=== PATIENT | female | born 1955 | race Caucasian/White ===

== ENCOUNTER → 2016-08-15 | Outpatient (CLI) | payer BC ==
--- NOTE | 2016-08-18 11:47 | MM ---
Reason for exam: screening (asymptomatic). Last mammogram was performed 1 year and 11 months ago. History: Patient is postmenopausal. Took hormonal contraceptives for 2 years beginning at age 19. Took estrogen for 1 year 6 months beginning at age 45. Physical Findings: A clinical breast exam by your physician is recommended on an annual basis and results should be correlated with mammographic findings. MG Screening Mammo w CAD Bilateral CC and MLO view(s) were taken. XCCL view(s) were taken of the left breast. Prior study comparison: September 08, 2014, bilateral MG screening mammo w CAD. August 03, 2013, bilateral digital screening mammo w/CAD. There are scattered fibroglandular densities. No significant changes when compared with prior studies. ASSESSMENT: Benign, BI-RAD 2 RECOMMENDATION: Routine screening mammogram of both breasts in 1 year.
== END | disposition home or self-care (01) ==
LOC: RADMAMWWP 13:27
PROVIDERS: ATTEND Obstetrics & Gynecology
DX: Z12.31 Encounter for screening mammogram for malignant neoplasm of breast (principal)

== ENCOUNTER → 2017-09-07 | Outpatient (CLI) | payer BC ==
--- NOTE | 2017-09-07 08:21 | MM ---
Reason for exam: clinical finding. Last mammogram was performed 1 year and 1 month ago. History: Patient is postmenopausal. Took hormonal contraceptives for 2 years beginning at age 19. Took estrogen for 1 year 6 months beginning at age 45. Physical Findings: Nurse did not find any significant physical abnormalities on exam. MG Diagnostic Mammo w CAD GRIFFIN Bilateral CC and MLO view(s) were taken. Prior study comparison: August 15, 2016, bilateral MG screening mammo w CAD. September 08, 2014, bilateral MG screening mammo w CAD. There are scattered fibroglandular densities. There is chronic nodularity in the right breast. No significant new findings when compared with previous films. These results were verbally communicated with the patient and result sheet given to the patient on 09/07/17. ASSESSMENT: Incomplete: need additional imaging evaluation, BI-RAD 0 RECOMMENDATION: Ultrasound of the left breast. (targeted to pain)
--- NOTE | 2017-09-07 08:22 | USB ---
Reason for exam: additional evaluation requested from abnormal screening. History: Patient is postmenopausal. Took hormonal contraceptives for 2 years beginning at age 19. Took estrogen for 1 year 6 months beginning at age 45. US Breast Limited LT Left breast ultrasound demonstrates no cystic or solid lesion seen. Scanned from 12-6 o'clock. These results were verbally communicated with the patient and result sheet given to the patient on 09/07/17. ASSESSMENT: Negative, BI-RAD 1 RECOMMENDATION: Routine screening mammogram of both breasts in 1 year. Manage on a clinical basis with regard to lateral left breast pain.
== END | disposition home or self-care (01) ==
LOC: RADMAMWWP 06:56
PROVIDERS: ATTEND Obstetrics & Gynecology
DX: N64.4 Mastodynia (principal); R92.8 Other abnormal and inconclusive findings on diagnostic imaging of breast
CPT/HCPCS: 77066

== ENCOUNTER → 2018-07-05 | Outpatient (CLI) | payer BC ==
[2018-07-05 12:38] LABS: HCT 42.9 % (34.0-46.0); HGB 14.4 gm/dL (11.4-16.0); MCH 32.7 pg (25.0-35.0); MCHC 33.5 g/dL (31.0-37.0); MCV 97.6 fL (80.0-100.0); Mean Platelet Volume 6.6; Platelet Count 389 k/uL (150-450); RDW 12.7 % (11.5-15.5); WBC 6.1 k/uL (3.8-10.6)
[2018-07-05 12:50] LABS: Appearance,Urine Clear (Clear); Bilirubin,Urine Negative (Negative); Blood,Urine Trace (Negative); Color,Urine Light Yellow; Glucose,Urine (UA) Negative (Negative); Ketones,Urine Negative (Negative); Leukocyte Esterase,Urine Negative (Negative); Nitrite,Urine Negative (Negative); Protein,Urine Negative (Negative); RBC,Urine 1 /hpf (0-5); Specific Gravity,Urine 1.004 (1.001-1.035); Squamous Epithelial Cell,Urine <1 /hpf (0-4); Urobilinogen,Urine <2.0 mg/dL (<2.0); WBC,Urine <1 /hpf (0-5)
[2018-07-05 18:59] LABS: T4, Free (Free Thyroxine) 1.5 ng/dL (0.80-1.80)
[2018-07-05 19:19] LABS: Albumin/Globulin Ratio 2.5 (1.20-2.10); Anion Gap 8.9 mmol/L (4.00-12.00); Carbon Dioxide 29.1 mmol/L (21.6-31.8); LDL Cholesterol,Calculated 100.6 mg/dL (0.0-131.0); Potassium 4.1 mmol/L (3.5-5.5); Total Bilirubin 0.7 mg/dL (0.2-1.2); VLDL Calculation 32.4 mg/dL (5.00-40.00)
[2018-07-05 20:32] LABS: Hepatitis C IgG Antibody Non-Reactive (Non-Reactive)
== END | disposition home or self-care (01) ==
LOC: LABWHC1 10:59
PROVIDERS: ATTEND Family Medicine
DX: Z00.00 Encounter for general adult medical examination without abnormal findings (principal); Z13.9 Encounter for screening, unspecified; E55.9 Vitamin D deficiency, unspecified; E03.9 Hypothyroidism, unspecified
CPT/HCPCS: 36415; 80053; 80061; 81001; 82306; 84439; 84443; 84481; 85027; 86803

== ENCOUNTER → 2018-10-26 | Outpatient (CLI) | payer BC ==
--- NOTE | 2018-10-26 16:21 | MR ---
EXAMINATION TYPE: MR brain wo con DATE OF EXAM: 10/26/2018 COMPARISON: NONE HISTORY: Left leg weakness and TIA per order. Left leg numbness and dizziness with memory loss per pa tient. TECHNIQUE: Multiplanar, multisequence imaging of the brain and brainstem is performed without IV cont rast. FINDINGS: Diffusion weighted images demonstrate no evidence of a recent infarct or other diffusion abnormality. There is no worrisome extra-axial fluid collection. There is mild ventricular and sulcal prominence. There is occasional focus of T2 hyperintensity seen throughout the white matter bilaterally. Less adenike n 4 lesions are seen. For reference to frontal lobe lesions are noted axial image 20 measuring 2 to 3 mm in size. Midline structures demonstrate normal morphology. The craniocervical junction appears within normal limits. Normal vascular flow voids are present. Dominant right vertebral artery is present. The visua lized sinuses are clear and the globes are intact. Some increased patchy fluid left mastoid air cells inferiorly is seen. IMPRESSION: Mild generalized age-related cerebral atrophy and minimal chronic small vessel ischemic c hange. No evidence of a recent or significant old infarcts. Perhaps mild left-sided mastoiditis, mason elate clinically.
== END ==
LOC: RADMRIMAIN 15:00
PROVIDERS: ATTEND Psychiatry & Neurology Neurology
DX: G31.1 Senile degeneration of brain, not elsewhere classified (principal)
CPT/HCPCS: 70551

== ENCOUNTER → 2018-11-02 | Outpatient (CLI) | payer BC ==
--- NOTE | 2018-11-02 19:53 | ECHOF ---
Referral Reason:G45.9 TIA I74.9 embolism and thrombus MEASUREMENTS -------- HEIGHT: 172.7 cm WEIGHT: 83.9 kg BP: RVIDd: 2.7 cm (< 3.3) IVSd: 1.1 cm (0.6 - 1.1) LVIDd: 4.1 cm (3.9 - 5.3) LVPWd: 1.5 cm (0.6 - 1.1) IVSs: 1.3 cm LVIDs: 2.9 cm LVPWs: 1.5 cm LA Diam: 4.2 cm (2.7 - 3.8) LAESV Index (A-L): 30.61 ml/m Ao Diam: 3.2 cm (2.0 - 3.7) AV Cusp: 2.4 cm (1.5 - 2.6) LA Diam: 3.3 cm (2.7 - 3.8) EPSS: 0.5 cm MV E Brennon: 0.53 m/s MV DecT: 275 ms MV A Brennon: 0.85 m/s MV E/A Ratio: 0.63 RAP: 5.00 mmHg RVSP: 27.53 mmHg MV EF SLOPE: 69.90 mm/s (70 - 150) MV EXCURSION: 1.97 cm (> 18.000) FINDINGS -------- Sinus rhythm. This was a technically adequate study. The left ventricular size is normal. There is mild concentric left ventricular hypertrophy. Overa ll left ventricular systolic function is normal with, an EF between 55 - 60 %. The right ventricle is normal in size. The left atrium is mildly dilated. LA is midly dilated 29-33ml/m2. The right atrial size is normal. There is mild aortic regurgitation. Mild mitral annular calcification present. No mitral regurgitation. The right ventricular systolic pressure, as measured by Doppler, is 27.53mmHg. There is no pulmonic regurgitation present. The aortic root size is normal. There is no pericardial effusion. CONCLUSIONS -------- 1. This was a technically adequate study. 2. The left ventricular size is normal. 3. There is mild concentric left ventricular hypertrophy. 4. Overall left ventricular systolic function is normal with, an EF between 55 - 60 %. 5. The right ventricle is normal in size. 6. The left atrium is mildly dilated. 7. LA is midly dilated 29-33ml/m2. 8. The right atrial size is normal. 9. There is mild aortic regurgitation. 10. Mild mitral annular calcification present. 11. No mitral regurgitation. 12. The right ventricular systolic pressure, as measured by Doppler, is 27.53mmHg. 13. There is no pulmonic regurgitation present. 14. The aortic root size is normal. 15. There is no pericardial effusion. ELECTROCARDIOGRAPHIC TECHNICIAN: Kaity Lester RDCS
== END ==
LOC: RADECHMAIN 07:57
PROVIDERS: ATTEND Psychiatry & Neurology Neurology
DX: I72.8 Aneurysm of other specified arteries (principal); I35.1 Nonrheumatic aortic (valve) insufficiency; I70.8 Atherosclerosis of other arteries; I10 Essential (primary) hypertension
CPT/HCPCS: 93306

== ENCOUNTER → 2018-12-01 | Outpatient (CLI) | payer BC ==
--- NOTE | 2018-12-02 11:31 | MM ---
Reason for exam: screening (asymptomatic). Last mammogram was performed 1 year and 3 months ago. History: Patient is postmenopausal. Took hormonal contraceptives for 2 years beginning at age 19. Took estrogen for 1 year 6 months beginning at age 45. Physical Findings: A clinical breast exam by your physician is recommended on an annual basis and results should be correlated with mammographic findings. MG Screening Mammo w CAD Bilateral CC, MLO, and XCCL view(s) were taken. Prior study comparison: September 07, 2017, bilateral MG diagnostic mammo w CAD G[facility]FF[facility]. August 15, 2016, bilateral MG screening mammo w CAD. There are scattered fibroglandular densities. There is no discrete abnormality. ASSESSMENT: Negative, BI-RAD 1 RECOMMENDATION: Routine screening mammogram of both breasts in 1 year.
== END | disposition home or self-care (01) ==
LOC: RADMAMWWP 12:45
PROVIDERS: ATTEND Obstetrics & Gynecology
DX: Z12.31 Encounter for screening mammogram for malignant neoplasm of breast (principal)
CPT/HCPCS: 77067

== ENCOUNTER → 2019-04-04 | Outpatient (CLI) | payer BC ==
[2019-04-04 07:45] LABS: HCT 41.2 % (34.0-46.0); HGB 13.9 gm/dL (11.4-16.0); MCH 32.6 pg (25.0-35.0); MCHC 33.9 g/dL (31.0-37.0); MCV 96.3 fL (80.0-100.0); Platelet Count 443 k/uL (150-450); RBC 4.27 m/uL (3.80-5.40); RDW 13.2 % (11.5-15.5); WBC 6.1 k/uL (3.8-10.6)
[2019-04-04 07:56] LABS: Appearance,Urine Clear (Clear); Bilirubin,Urine Negative (Negative); Blood,Urine Negative (Negative); Color,Urine Yellow; Glucose,Urine (UA) Negative (Negative); Ketones,Urine Negative (Negative); Leukocyte Esterase,Urine Negative (Negative); Nitrite,Urine Negative (Negative); Protein,Urine Negative (Negative); Urobilinogen,Urine <2.0 mg/dL (<2.0)
[2019-04-04 11:14] LABS: African American GFR (CKD) 79.4 (60.0-200.0); Albumin 4.9 g/dL (3.80-4.90); Albumin/Globulin Ratio 2.45 (1.60-3.17); Anion Gap 8.3 mmol/L (4.00-12.00); BUN/Creat Ratio 11.11 Ratio (12.00-20.00); Carbon Dioxide 31.7 mmol/L (21.6-31.8); Chol/HDL Ratio 3.54; Total Bilirubin 0.5 mg/dL (0.2-1.2); Total Protein 6.9 g/dL (6.2-8.2)
[2019-04-04 11:23] LABS: T4, Free (Free Thyroxine) 1.5 ng/dL (0.80-1.80)
== END | disposition home or self-care (01) ==
LOC: LABWHC1 07:17
PROVIDERS: ATTEND Family Medicine
DX: Z00.00 Encounter for general adult medical examination without abnormal findings (principal); E55.9 Vitamin D deficiency, unspecified; E03.9 Hypothyroidism, unspecified
CPT/HCPCS: 36415; 80053; 80061; 81003; 82306; 84439; 84443; 84481; 85027

== ENCOUNTER → 2019-06-28 | Outpatient (CLI) | payer BC ==
[2019-06-28 21:04] LABS: T4, Free (Free Thyroxine) 1.6 ng/dL (0.80-1.80)
== END | disposition home or self-care (01) ==
LOC: LABWHC1 09:34
PROVIDERS: ATTEND Family Medicine
DX: E03.9 Hypothyroidism, unspecified (principal)
CPT/HCPCS: 36415; 84439; 84443; 84481

== ENCOUNTER → 2020-01-20 | Outpatient (CLI) | payer BC ==
--- NOTE | 2020-01-23 10:06 | MM ---
Reason for exam: screening (asymptomatic). Last mammogram was performed 1 year and 2 months ago. History: Patient is postmenopausal. Took hormonal contraceptives for 2 years beginning at age 19. Took estrogen for 1 year 6 months beginning at age 45. Physical Findings: A clinical breast exam by your physician is recommended on an annual basis and results should be correlated with mammographic findings. MG Screening Mammo w CAD Bilateral CC and MLO view(s) were taken. Prior study comparison: December 01, 2018, bilateral MG screening mammo w CAD. September 07, 2017, bilateral MG diagnostic mammo w CAD [facility]. There are scattered fibroglandular densities. No significant changes when compared with prior studies. ASSESSMENT: Benign, BI-RAD 2 RECOMMENDATION: Routine screening mammogram of both breasts in 1 year.
== END | disposition home or self-care (01) ==
LOC: RADMAMWWP 10:45
PROVIDERS: ATTEND Obstetrics & Gynecology
DX: Z12.31 Encounter for screening mammogram for malignant neoplasm of breast (principal)
CPT/HCPCS: 77067

== ENCOUNTER → 2021-01-31 | Outpatient (CLI) | payer BC ==
--- NOTE | 2021-02-04 14:40 | MM ---
Reason for exam: screening (asymptomatic). Last mammogram was performed 1 year ago. History: Patient is postmenopausal. Took hormonal contraceptives for 2 years beginning at age 19. Took estrogen for 1 year 6 months beginning at age 45. Physical Findings: A clinical breast exam by your physician is recommended on an annual basis and results should be correlated with mammographic findings. MG Screening Mammo w CAD Bilateral CC and MLO view(s) were taken. Prior study comparison: January 20, 2020, bilateral MG screening mammo w CAD. December 01, 2018, bilateral MG screening mammo w CAD. There are scattered fibroglandular densities. Mole marker left breast with marker. ASSESSMENT: Benign, BI-RAD 2 RECOMMENDATION: Routine screening mammogram of both breasts in 1 year.
== END | disposition home or self-care (01) ==
LOC: RADMAMWWP 14:36
PROVIDERS: ATTEND Obstetrics & Gynecology
DX: Z12.31 Encounter for screening mammogram for malignant neoplasm of breast (principal); Z78.0 Asymptomatic menopausal state; Z79.3 Long term (current) use of hormonal contraceptives
CPT/HCPCS: 77067

== ENCOUNTER 2021-02-20 06:52 | Emergency (ER) | payer BC ==
[2021-02-20 07:04] VITALS: TEMP 97.8
--- NOTE | 2021-02-20 07:32 | ED ---
General Adult HPI - General Chief complaint: Chest Pain Stated complaint: Chest pain Time Seen by Provider: 02/20/21 07:16 Source: patient, family Mode of arrival: ambulatory - History of Present Illness Initial comments: Dictation was produced using [employer] dictation software. please excuse any grammatical, word or spelling errors. Chief Complaint: 65-year-old male presents to emergency department for substernal pressure after ingesting her daily medications History of Present Illness: She is 65-year-old female she states she has history of coronary artery disease and heart attacks. Patient states that she was taking her pills at 5:30 this morning. Immediately after taking her blood pressure medication she noted pressure in her substernal area. She felt as though the pills were stuck in her chest. She waited for several minutes and her symptoms seemed to resolve. She then after 1 hour took another one of her daily pills. She experiences a result. Patient denies any associated diaphoresis, nausea. States that perhaps the pain radiated slightly to her right upper extremity. Denies any fever chills or night sweats. Patient denies any symptoms that are worsening with deep inspiration. Patient has never had symptoms like this in the past. She does not report having had any trouble with swallowing difficulties. The ROS documented in this emergency department record has been reviewed and confirmed by me. Those systems with pertinent positive or negative responses have been documented in the HPI. All other systems are other negative and/or noncontributory. PHYSICAL EXAM: General Impression: Alert and oriented x3, not in acute distress HEENT: Normocephalic atraumatic, extra-ocular movements intact, pupils equal and reactive to light bilaterally, mucous membranes moist. Cardiovascular: Heart regular rate and rhythm Chest: Able to complete full sentences, no retractions, no tachypnea Abdomen: abdomen soft, non-tender, non-distended, no organomegaly Musculoskeletal: Pulses present and equal in all extremities, no peripheral edema Motor: no focal deficits noted Neurological: CN II-XII grossly intact, no focal motor or sensory deficits noted Skin: Intact with no visualized rashes Psych: Normal affect and mood ED course: 65-year-old well-appearing female presents to the emergency department for chest pressure after swallowing her pills. Vital signs upon arrival are within acceptable limits. EKG shows no signs of ischemia or infarction. 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 CBC is unremarkable. Metabolic panel is negative. Troponin is negative. Chest x-ray is nonacute. Patient reevaluated bedside at the and found to be in stable medical condition. She denies any symptoms currently. Disposition options were discussed. She would prefer to be discharge. She understands risks of being discharged given that she has an incomplete workup because of only 1 troponin. Nonetheless, patient does not have any high-risk features. Furthermore, her symptoms are atypical. She understands to seek immediate medical attention if she has any recurrence of symptoms. She is given aspirin.She is given strict return precautions. EKG interpretation: Ventricular rate 69, normal sinus rhythm,. Interval 176, QRS 90, QTc 4:30. No MS prolongation, no QTC prolongation, no ST or T-wave changes noted. No old EKG for comparison. Overall, this EKG is unremarkable - Related Data Allergies Allergy/AdvReac Type Severity Reaction Status Date / Time azithromycin Allergy Rash/Hives Verified 02/20/21 06:56 [From Zithromax Z-Lorenzo] clindamycin Allergy Rash/Hives Verified 02/20/21 06:56 Penicillins Allergy Rash/Hives Verified 02/20/21 06:56 acetaminophen AdvReac Nausea Verified 02/20/21 06:56 [From Tylenol-Codeine] codeine AdvReac Nausea Verified 02/20/21 06:56 [From Tylenol-Codeine] Review of Systems ROS Statement: Those systems with pertinent positive or pertinent negative responses have been documented in the HPI. ROS Other: All systems not noted in ROS Statement are negative. Past Medical History Past Medical History: Atrial Fibrillation, Atrial Flutter, CVA/TIA, Hyperlipidemia, Hypertension, Myocardial Infarction ([place]), Osteoarthritis (OA), Thyroid Disorder History of Any Multi-Drug Resistant Organisms: None Reported Past Surgical History: Appendectomy, Tubal Ligation Additional Past Surgical History / Comment(s): Cataract, orthopedic procedures Past Psychological History: No Psychological Hx Reported Smoking Status: Former smoker Past Alcohol Use History: None Reported Past Drug Use History: None Reported Course Vital Signs 02/20/21 02/20/21 06:57 08:04 Temperature 97.8 F Pulse Rate 73 71 Respiratory 18 16 Rate Blood Pressure 159/85 148/90 O2 Sat by Pulse 96 97 Oximetry Medical Decision Making - Lab Data Result diagrams: 02/20/21 07:47 02/20/21 07:47 Lab Results 02/20/21 02/20/21 02/20/21 Range/Units 07:47 07:47 07:47 WBC 3.9 (3.8-10.6) k/uL RBC 4.01 (3.80-5.40) m/uL Hgb 13.2 (11.4-16.0) gm/dL Hct 39.8 (34.0-46.0) % MCV 99.2 (80.0-100.0) fL MCH 32.9 (25.0-35.0) pg MCHC 33.2 (31.0-37.0) g/dL RDW 12.9 (11.5-15.5) % Plt Count 400 (150-450) k/uL MPV 6.8 Neutrophils % 72 % Lymphocytes % 19 % Monocytes % 5 % Eosinophils % 3 % Basophils % 0 % Neutrophils # 2.8 (1.3-7.7) k/uL Lymphocytes # 0.7 L (1.0-4.8) k/uL Monocytes # 0.2 (0-1.0) k/uL Eosinophils # 0.1 (0-0.7) k/uL Basophils # 0.0 (0-0.2) k/uL Sodium 138 (137-145) mmol/L Potassium 3.8 (3.5-5.1) mmol/L Chloride 102 (98-107) mmol/L Carbon Dioxide 31 H (22-30) mmol/L Anion Gap 5 mmol/L BUN 5 L (7-17) mg/dL Creatinine 0.69 (0.52-1.04) mg/dL Est GFR (CKD-EPI)AfAm >90 (>60 ml/min/1.73 sqM) Est GFR (CKD-EPI)NonAf >90 (>60 ml/min/1.73 sqM) Glucose 104 H (74-99) mg/dL Calcium 9.7 (8.4-10.2) mg/dL Magnesium 2.1 (1.6-2.3) mg/dL Total Bilirubin 0.3 (0.2-1.3) mg/dL AST 25 (14-36) U/L ALT 18 (4-34) U/L Alkaline Phosphatase 67 (38-126) U/L Troponin I <0.012 (0.000-0.034) ng/mL Total Protein 6.4 (6.3-8.2) g/dL Albumin 4.1 (3.5-5.0) g/dL Lipase 203 (23-300) U/L Disposition Clinical Impression: Chest pain Disposition: HOME SELF-CARE Condition: Fair Instructions (If sedation given, give patient instructions): Chest Pain (ED) Is patient prescribed a controlled substance at d/c from ED?: No Referrals: Christiano Mike MD [Primary Care Provider] - 1-2 days
[2021-02-20 07:59] LABS: Basophils % (A) 0 %; Eosinophils # (A) 0.1 k/uL (0-0.7); Eosinophils % (A) 3 %; HCT 39.8 % (34.0-46.0); HGB 13.2 gm/dL (11.4-16.0); Lymphocytes # (A) 0.7 k/uL (1.0-4.8); Lymphocytes % (A) 19 %; MCH 32.9 pg (25.0-35.0); MCHC 33.2 g/dL (31.0-37.0); MCV 99.2 fL (80.0-100.0); Mean Platelet Volume 6.8; Monocytes # (A) 0.2 k/uL (0-1.0); Monocytes % (A) 5 %; Neutrophils # (A) 2.8 k/uL (1.3-7.7); Neutrophils % (A) 72 %; Platelet Count 400 k/uL (150-450); RBC 4.01 m/uL (3.80-5.40); RDW 12.9 % (11.5-15.5); WBC 3.9 k/uL (3.8-10.6)
[2021-02-20 08:20] LABS: ALT 18 U/L (4-34); AST 25 U/L (14-36); African American GFR (CKD) >90 (>60 ml/min/1.73 sqM); Albumin 4.1 g/dL (3.5-5.0); Alkaline Phosphatase 67 U/L (38-126); Anion Gap 5 mmol/L; Blood Urea Nitrogen 5 mg/dL (7-17); Calcium 9.7 mg/dL (8.4-10.2); Carbon Dioxide 31 mmol/L (22-30); Chloride 102 mmol/L (98-107); Glucose 104 mg/dL (74-99); Lipase 203 U/L (23-300); Magnesium 2.1 mg/dL (1.6-2.3); Non-African American GFR(CKD) >90 (>60 ml/min/1.73 sqM); Potassium 3.8 mmol/L (3.5-5.1); Sodium 138 mmol/L (137-145); Total Bilirubin 0.3 mg/dL (0.2-1.3); Total Protein 6.4 g/dL (6.3-8.2)
--- NOTE | 2021-02-20 08:20 | XR ---
EXAMINATION TYPE: XR chest 1V portable DATE OF EXAM: 02/20/2021 COMPARISON: None INDICATION: Substernal pressure, chest pain TECHNIQUE: Single frontal view of the chest is obtained. FINDINGS: The heart size is normal. The pulmonary vasculature is normal. The lungs are clear. IMPRESSION: 1. No acute pulmonary process.
[2021-02-20 08:37] VITALS: PULSE 71
[2021-02-20] MEDS ORDERED: ASPIRIN 81 MG PO STA (09:08)
[2021-02-20 09:40] VITALS: BP 136/84; RESP 18
== END 2021-02-20 09:38 | disposition home or self-care (01) ==
LOC: EC 06:52
DX: R07.89 Other chest pain (principal); I10 Essential (primary) hypertension; I25.2 Old myocardial infarction; Z86.73 Personal history of transient ischemic attack (TIA), and cerebral infarction without residual deficits; Z87.891 Personal history of nicotine dependence; Z88.0 Allergy status to penicillin; Z88.5 Allergy status to narcotic agent; Z88.6 Allergy status to analgesic agent; Z88.1 Allergy status to other antibiotic agents
CPT/HCPCS: 36415; 71045; 80053; 83690; 83735; 84484; 85025; 93005; 99285

== ENCOUNTER → 2021-04-08 | Outpatient (CLI) | payer BC ==
[2021-04-09 02:04] LABS: T4, Free (Free Thyroxine) 1.7 ng/dL (0.80-1.80)
== END | disposition home or self-care (01) ==
LOC: LABWHC1 14:10
PROVIDERS: ATTEND Family Medicine
DX: E03.9 Hypothyroidism, unspecified (principal)
CPT/HCPCS: 36415; 84439; 84443; 84481

== ENCOUNTER → 2021-04-12 | Outpatient (CLI) | payer BC ==
[2021-04-12 14:29] LABS: HCT 42.8 % (37.2-46.3); HGB 13.5 g/dL (12.0-15.0); MCHC 31.5 g/dL (32.0-37.0); MCV 101.4 fL (80.0-97.0); Mean Platelet Volume 9.8 fL (9.5-12.2); Platelet Count 348 X 10*3/uL (140-440); RBC 4.22 X 10*6/uL (4.10-5.20); WBC 4.17 X 10*3/uL (4.50-10.00)
[2021-04-13 03:43] LABS: African American GFR (CKD) 90.3 (60.0-200.0); Albumin 4.8 g/dL (3.80-4.90); Albumin/Globulin Ratio 2.09 (1.60-3.17); Anion Gap 10.7 mmol/L (4.00-12.00); Carbon Dioxide 28.3 mmol/L (21.6-31.8); Chol/HDL Ratio 3.53; Globulin 2.3 g/dL (1.6-3.3); Non-African American GFR(CKD) 77.9 (60.0-200.0); Total Bilirubin 0.8 mg/dL (0.2-1.2); Total Protein 7.1 g/dL (6.2-8.2)
== END | disposition home or self-care (01) ==
LOC: LABWHC1 09:01
PROVIDERS: ATTEND Family Medicine
DX: Z00.00 Encounter for general adult medical examination without abnormal findings (principal)
CPT/HCPCS: 36415; 80053; 80061; 85027

== ENCOUNTER → 2021-12-20 | Outpatient (CLI) | payer MEDICARE ==
--- NOTE | 2021-12-23 08:36 | BD ---
EXAMINATION TYPE: Axial Bone Density DATE OF EXAM: 12/20/2021 COMPARISON: NONE CLINICAL HISTORY: 66 years year old Female. ICD-10 CODE: M89.9 DISORDER OF BONE, UNSPECIFIED Height: 66.5 Weight: 178.8 FRAX RISK QUESTIONS: Alcohol (3 or more units per day): NO Family History (Parent hip fracture): NO Glucocorticoids (More than 3mos): NO History of Fracture in Adulthood: NO Secondary Osteoporosis: 1. Type 1 Diabetes: NO 2. Hyperthyroidism: NO 3. Menopause before 45: NO 4. Malnutrition: NO 5. Chronic liver disease: NO Rheumatoid Arthritis: NO Current Tobacco Use: NO RISK FACTORS HISTORY OF: Hip Fracture (Right/Left): NO Spine Fracture: NO History of Wrist Fracture: NO Surgery to Spine/Hip(right/left)/Wrist (right/left): NO Family History of Osteoporosis: NO Active: YES Diet low in dairy products/other sources of calcium: YES Postmenopausal woman: YES Take estrogen and/or progesterone medications: NO Lost more than 2 inches in height since high school: YES Frequent falls: NO Poor Health: NO Hyperparathyroidism: NO Adrenal Insufficiency: NO MEDICATIONS: Prednisone or other steroids: NO Thyroid Medications: SYNTHROID How Long: PAST 20 YEARS Osteoporosis Medications:NO Additional Medications: SYNTHYROID, ELIQUIS, FAMOTIDINE, LIPITOR, FISH OIL. VIT D, CURCUMIN, Additional History: EXAM MEASUREMENTS: Bone mineral densitometry was performed using the [employer] System. Bone mineral density as measured about the Lumbar spine is: ----- L1-L4(G/cm2): 1.428 T Score Values are as follows: ----- L1: -0.1 ----- L2: 3.0 ----- L3: 3.5 ----- L4: 2.4 ----- L1-L4: 2.1 BASELINE STUDY Bone mineral density about the R hip (g/cm2): 0.965 Bone mineral density about the L hip (g/cm2): 0.999 T Score values are as follows: -----R Neck: -0.5 -----L Neck: -0.3 -----R Total: -0.6 -----L Total: -0.4 BASELINE STUDY FRAX%s: The graph provided illustrates a 7.2% chance for a major osteoporotic fx and a 0.4% chance fo r the hips probability for fx in 10 years time. IMPRESSION: Normal (Values between +1 and -1 indicate normal bone mass). Consider repeating this study in 5 year s or sooner if there is some new clinical indication. NOTE: T-SCORE=SD OF THE YOUNG ADULT MEAN.
== END | disposition home or self-care (01) ==
LOC: RADBDWWP 14:13
PROVIDERS: ATTEND Family Medicine
DX: M85.89 Other specified disorders of bone density and structure, multiple sites (principal)
CPT/HCPCS: 77080

== ENCOUNTER → 2022-01-09 | Outpatient (CLI) | payer MEDICARE ==
[2022-01-09 10:37] LABS: HCT 40.6 % (37.2-46.3); HGB 12.6 g/dL (12.0-15.0); MCH 30.3 pg (27.0-32.0); MCV 97.6 fL (80.0-97.0); Mean Platelet Volume 9.6 fL (9.5-12.2); NRBC Per 100 WBC 0 /100 WBCS (0.0-0.0); Platelet Count 336 X 10*3/uL (140-440); RBC 4.16 X 10*6/uL (4.10-5.20); RDW 13.1 % (11.5-14.5); WBC 4.72 X 10*3/uL (4.50-10.00)
[2022-01-09 11:16] LABS: ALT 15 U/L (8-44); AST 19 U/L (13-35); African American GFR (CKD) 105.4 (60.0-200.0); Albumin 4.6 g/dL (3.8-4.9); Albumin/Globulin Ratio 1.92 (1.60-3.17); Alkaline Phosphatase 72 U/L (41-126); BUN/Creat Ratio 12.71 Ratio (12.00-20.00); Blood Urea Nitrogen 8.9 mg/dL (9.0-27.0); Calcium 9.7 mg/dL (8.7-10.3); Chloride 102 mmol/L (96-109); Chol/HDL Ratio 3.97 Ratio; Globulin 2.4 g/dL (1.6-3.3); Glucose 84 mg/dL (70-110); LDL Cholesterol,Calculated 100.1 mg/dL (0.0-131.0); Non-African American GFR(CKD) 90.9 (60.0-200.0); Potassium 3.8 mmol/L (3.5-5.5); Sodium 138 mmol/L (135-145)
== END | disposition home or self-care (01) ==
LOC: LABWHC1 07:05
PROVIDERS: ATTEND Family Medicine
DX: Z00.01 Encounter for general adult medical examination with abnormal findings (principal); E03.9 Hypothyroidism, unspecified; R53.83 Other fatigue
CPT/HCPCS: 36415; 80053; 80061; 82306; 84439; 84443; 84481; 85027

== ENCOUNTER → 2022-02-03 | Outpatient (CLI) | payer MEDICARE ==
--- NOTE | 2022-02-06 10:26 | MM ---
Reason for Exam: Screening (asymptomatic). Last screening mammogram was performed 12 month(s) ago. Patient History: Menarche at age 14. First Full-Term at age 27. Postmenopausal. Estrogen for 1 year, 6 months, from age 45 until age 47. Hormonal Contraceptives for 2 years from age 19 until age 23. Risk Values: [place] 5 year model risk: 1.8%. NCI Lifetime model risk: 6.9%. Prior Study Comparison: 12/01/2018 Bilateral Screening Mammogram, [facility]. 01/20/2020 Bilateral Screening Mammogram, [facility]. 01/31/2021 Bilateral Screening Mammogram, [facility]. Tissue Density: The breast tissue is almost entirely fat. Findings: Analyzed By CAD. There is no suspicious group of microcalcifications or new suspicious mass in either breast. Overall Assessment: Benign, BI-RAD 2 Management: Screening Mammogram of both breasts in 1 year. A clinical breast exam by your physician is recommended on an annual basis and results should be correlated with mammographic findings. Electronically signed and approved by: Blake Quijano DO
== END | disposition home or self-care (01) ==
LOC: RADMAMWWP 16:25
PROVIDERS: ATTEND Obstetrics & Gynecology
DX: Z12.31 Encounter for screening mammogram for malignant neoplasm of breast (principal); Z78.0 Asymptomatic menopausal state
CPT/HCPCS: 77067

== ENCOUNTER → 2022-12-19 | Outpatient (CLI) | payer MEDICARE ==
[2022-12-19 15:22] LABS: HGB 13.4 g/dL (12.0-15.0); MCH 31.8 pg (27.0-32.0); MCHC 31.9 g/dL (32.0-37.0); MCV 99.8 fL (80.0-97.0); Mean Platelet Volume 9.2 fL (9.5-12.2); NRBC Per 100 WBC 0 /100 WBCS (0.0-0.0); Platelet Count 333 X 10*3/uL (140-440); RBC 4.21 X 10*6/uL (4.10-5.20); RDW 13.2 % (11.5-14.5); WBC 4.85 X 10*3/uL (4.50-10.00)
[2022-12-19 16:22] LABS: ALT 26 U/L (8-44); AST 20 U/L (13-35); Albumin 4.8 g/dL (3.8-4.9); Albumin/Globulin Ratio 2.18 (1.60-3.17); Alkaline Phosphatase 72 U/L (41-126); BUN/Creat Ratio 10.25 Ratio (12.00-20.00); Blood Urea Nitrogen 8.2 mg/dL (9.0-27.0); Carbon Dioxide 29.3 mmol/L (20.0-27.5); Chloride 101 mmol/L (96-109); Chol/HDL Ratio 3.48 Ratio; Globulin 2.2 g/dL (1.6-3.3); Glucose 86 mg/dL (70-110); LDL Cholesterol,Calculated 94.8 mg/dL (0.0-131.0); Non-African American GFR(CKD) 76.8 (60.0-200.0); Potassium 4.1 mmol/L (3.5-5.5); Sodium 142 mmol/L (135-145)
== END | disposition home or self-care (01) ==
LOC: LABWHC1 08:06
PROVIDERS: ATTEND Family Medicine
DX: Z00.01 Encounter for general adult medical examination with abnormal findings (principal); E66.3 Overweight; E03.9 Hypothyroidism, unspecified
CPT/HCPCS: 36415; 80053; 80061; 84439; 84443; 84481; 85027

== ENCOUNTER 2023-01-24 11:44 | Observation (INO) | payer MEDICARE ==
--- NOTE | 2023-01-24 12:15 | ED ---
Arrhythmia/Palpitations HPI - General Chief Complaint: Arrhythmia/Palpitations Stated Complaint: poss Afib Time Seen by Provider: 01/24/23 11:50 Source: patient Mode of arrival: ambulatory Limitations: no limitations - History of Present Illness Initial Comments: 67 year old female past history of A. fib presents to the emergency department reporting palpitations. States that her symptoms started around 10:00 this morning. She felt like her heart was racing. She took her Eliquis and Coreg this morning. Denies any missed doses. Admits to some chest tightness. Mild shortness of breath. No fevers, chills or cough. States that she will have pa roxysmal A. fib however this is the longest it has lasted. Denies any recent illnesses or medication changes. No other alleviating, precipitating or modifying factors - Related Data Home Medications Medication Instructions Recorded Confirmed Acetaminophen [Tylenol Arthritis] 650 mg PO DAILY PRN 01/24/23 01/24/23 Aloe Vera/Meka Root 1 tab PO DAILY 01/24/23 01/24/23 Apixaban [Eliquis] 5 mg PO BID 01/24/23 01/24/23 Atorvastatin [Lipitor] 20 mg PO HS 01/24/23 01/24/23 Cholecalciferol [Vitamin D3 (125 125 mcg PO DAILY 01/24/23 01/24/23 Mcg = 5000 Iu)] Curcumin-Phosphatidylcholine 500 mg PO BID 01/24/23 01/24/23 [Curcumin Phytosome] Famotidine [Pepcid] 20 mg PO BID 01/24/23 01/24/23 Levothyroxine Sodium [Synthroid] 137 mcg PO MOTUWETHFRSA@0130 01/24/23 01/24/23 Levothyroxine Sodium [Synthroid] 205.5 mcg PO PARNELL@0130 01/24/23 01/24/23 Magnesium 200 mg PO DAILY 01/24/23 01/24/23 Meclizine [Antivert] 25 mg PO TID PRN 01/24/23 01/24/23 [place]-3/Dha/Epa/Fish Oil [Fish Oil 1 cap PO BID 01/24/23 01/24/23 1,000 mg Softgel] Prevagen 1 cap PO DAILY 01/24/23 01/24/23 Vit C/E/Zn/Coppr/Lutein/Zeaxan 1 cap PO BID 01/24/23 01/24/23 [Preservision Areds 2 Softgel] carvediloL [Coreg] 18.75 mg PO BID 01/24/23 01/24/23 hydroCHLOROthiazide [Hydrodiuril] 25 mg PO DAILY 01/24/23 01/24/23 Previous Rx's Medication Instructions Recorded Diltiazem Cd [Cardizem CD] 120 mg PO DAILY #30 cap 01/25/23 Allergies Allergy/AdvReac Type Severity Reaction Status Date / Time azithromycin Allergy Rash/Hives Verified 01/24/23 11:49 [From Zithromax Z-Lorenzo] clindamycin Allergy Rash/Hives Verified 01/24/23 11:49 omeprazole Allergy Headache/GI Verified 01/24/23 13:46 Upset Penicillins Allergy Rash/Hives Verified 01/24/23 13:46 codeine AdvReac Nausea Verified 01/24/23 11:49 [From Tylenol-Codeine] Review of Systems ROS Statement: Those systems with pertinent positive or pertinent negative responses have been documented in the HPI. ROS Other: All systems not noted in ROS Statement are negative. Past Medical History Past Medical History: Atrial Fibrillation, Atrial Flutter, CVA/TIA, Hyperlipidemia, Hypertension, Myocardial Infarction (DC), Osteoarthritis (OA), Thyroid Disorder History of Any Multi-Drug Resistant Organisms: None Reported Past Surgical History: Appendectomy, Tubal Ligation Additional Past Surgical History / Comment(s): Cataract, orthopedic procedures Past Psychological History: No Psychological Hx Reported Smoking Status: Former smoker Past Alcohol Use History: None Reported Past Drug Use History: None Reported General Exam Limitations: no limitations General appearance: alert, in no apparent distress Head exam: Present: atraumatic, normocephalic, normal inspection Eye exam: Present: normal appearance, PERRL, EOMI. Absent: scleral icterus, conjunctival injection, periorbital swelling ENT exam: Present: normal exam, mucous membranes moist Neck exam: Present: normal inspection. Absent: tenderness, meningismus, lymphadenopathy Respiratory exam: Present: normal lung sounds bilaterally. Absent: respiratory distress, wheezes, rales, rhonchi, stridor Cardiovascular Exam: Present: tachycardia, irregular rhythm, normal heart sounds. Absent: systolic murmur, diastolic murmur, rubs, gallop, clicks GI/Abdominal exam: Present: soft, normal bowel sounds. Absent: distended, tenderness, guarding, rebound, rigid Extremities exam: Present: normal inspection, full ROM, normal capillary refill. Absent: tenderness, pedal edema, joint swelling, calf tenderness Back exam: Present: normal inspection Neurological exam: Present: alert, oriented X3, CN II-XII intact Psychiatric exam: Present: normal affect, normal mood Skin exam: Present: warm, dry, intact, normal color. Absent: rash Course Vital Signs 01/24/23 01/24/23 01/24/23 11:46 12:10 12:20 Temperature 98.2 F Pulse Rate 125 H 151 H Respiratory 18 23 29 H Rate Blood Pressure 169/73 123/83 123/83 O2 Sat by Pulse 98 Oximetry 01/24/23 01/24/23 01/24/23 12:40 13:00 13:37 Temperature Pulse Rate 138 H 116 H Respiratory 9 L 20 Rate Blood Pressure 127/68 127/68 95/74 O2 Sat by Pulse 96 97 Oximetry 01/24/23 01/24/23 01/24/23 14:00 15:00 16:00 Temperature Pulse Rate 128 H 80 76 Respiratory 17 20 14 Rate Blood Pressure 95/60 115/69 123/69 O2 Sat by Pulse 97 97 98 Oximetry 01/24/23 16:39 Temperature 98.4 F Pulse Rate 82 Respiratory Rate Blood Pressure 139/99 O2 Sat by Pulse Oximetry Medical Decision Making - Medical Decision Making Was pt. sent in by a medical professional or institution (, PA, NEONATAL PEDIATRIC NURSE, urgent care, hospital, or group home...) When possible be specific @ -No Did you speak to anyone other than the patient for history (EMS, parent, family, police, friend...)? What history was obtained from this source @ -No Did you review nursing and triage notes (agree or disagree)? Why? @ -I reviewed and agree with nursing and triage notes Were old charts reviewed (outside hosp., previous admission, EMS record, old EKG, old radiological studies, urgent care reports/EKG's, group home records)? Report findings @ -No old charts were reviewed Differential Diagnosis (chest pain, altered mental status, abdominal pain women, abdominal pain men, vaginal bleeding, weakness, fever, dyspnea, syncope, hea dache, dizziness, GI bleed, back pain, seizure, CVA, palpatations, mental health, musculoskeletal)? @ -Differential Palpitations Ventricular arrhythmias, atrial arrhythmias, myocardial infarction, anemia, thyrotoxicosis, electrolyte imbalance, hypokalemia, pulmonary embolism, pu lmonary disease, drugs, alcohol, anxiety, stress.... This is not meant to be an all-inclusive list. EKG interpreted by me (3pts min.). @ -EKG demonstrates A. fib with rate of 107. IN interval 134. QRS 93. QTC 394. No acute ST segment elevations or depressions Repeat EKG at 1508 demonstrates sinus rhythm with a rate of 80. IN interval 171. QRS 97. QTC of 402. No acute ST segment elevation or depression X-rays interpreted by me (1pt min.). @ -yes, no acute process CT interpreted by me (1pt min.). @ -None done U/S interpreted by me (1pt. min.). @ -None done What testing was considered but not performed or refused? (CT, X-rays, U/S, labs)? Why? @ -None What meds were considered but not given or refused? Why? @ -None Did you discuss the management of the patient with other professionals (professionals i.e. , PA, NEONATAL PEDIATRIC NURSE, lab, RT, psych nurse, medical social consultant, caddie supervisor, teacher, control officer, caser)? Give summary @ -dr denton, admitting physician Was smoking cessation discussed for >3mins.? @ -No Was critical care preformed (if so, how long)? @ -yes, 35 minutes for cardiezem gtt Were there social determinants of health that impacted care today? How? (Homelessness, low income, unemployed, alcoholism, drug addiction, transportation, low edu. Level, literacy, decrease access to med. care, fci, rehab)? @ -No Was there de-escalation of care discussed even if they declined (Discuss DNR or withdrawal of care, Hospice)? DNR status @ -No What co-morbidities impacted this encounter? (DM, HTN, Smoking, COPD, CAD, Cancer, CVA, ARF, Chemo, Hep., AIDS, mental health diagnosis, sleep apnea, morbid obesity)? @ -afib Was patient admitted / discharged? Hospital course, mention meds given and route, prescriptions, significant lab abnormalities, going to OR and other pertinent info. @ -Upon arrival patient is placed into room 2. Thorough history and physical exam was performed. Patient placed on continuous pulse ox and cardiac monitoring. 12-lead EKG was obtained which demonstrates A. fib with a rate in the 170s. IV is established. Patient started on Cardizem drip. Laboratory studies are reviewed and are within normal limits. Chest x-ray demonstrates no acute process. Recommended admission due to A. fib with RVR. Spoke with Dr. Denton who is agreeable to admit the patient. I do go in the room later on in the patient has converted to normal sinus rhythm. We'll continue Cardizem drip and admission patient with cardiology to consult Undiagnosed new problem with uncertain prognosis? @ -No Drug Therapy requiring intensive monitoring for toxicity (Heparin, Nitro, Insulin, Cardizem)? @ -cardiezem gtt Were any procedures done? @ -No Diagnosis/symptom? @ -afib with rvr Acute, or Chronic, or Acute on Chronic? @ -acute Uncomplicated (without systemic symptoms) or Complicated (systemic symptoms)? @ -complicated Side effects of treatment? @ -No Exacerbation, Progression, or Severe Exacerbation? @ -No Poses a threat to life or bodily function? How? (Chest pain, USA, DC, pneumonia, PE, COPD, DKA, ARF, appy, cholecystitis, CVA, Diverticulitis, Homicidal, Suicidal, threat to staff... and all critical care pts) @ -No - Lab Data Result diagrams: 01/25/23 05:04 01/25/23 05:04 Lab Results 01/24/23 01/24/23 01/24/23 Range/Units 12:24 12:24 12:24 WBC 13.5 H (3.8-10.6) k/uL RBC 4.38 (3.80-5.40) m/uL Hgb 14.0 (11.4-16.0) gm/dL Hct 42.4 (34.0-46.0) % MCV 97.0 (80.0-100.0) fL MCH 32.0 (25.0-35.0) pg MCHC 33.0 (31.0-37.0) g/dL RDW 12.9 (11.5-15.5) % Plt Count 337 (150-450) k/uL MPV 7.2 Neutrophils % 84 % Lymphocytes % 9 % Monocytes % 5 % Eosinophils % 1 % Basophils % 0 % Neutrophils # 11.3 H (1.3-7.7) k/uL Lymphocytes # 1.3 (1.0-4.8) k/uL Monocytes # 0.6 (0-1.0) k/uL Eosinophils # 0.1 (0-0.7) k/uL Basophils # 0.0 (0-0.2) k/uL PT 10.1 (9.0-12.0) sec INR 0.9 (<1.2) APTT 28.1 (22.0-30.0) sec Sodium 135 L (137-145) mmol/L Potassium 3.7 (3.5-5.1) mmol/L Chloride 98 (98-107) mmol/L Carbon Dioxide 27 (22-30) mmol/L Anion Gap 10 mmol/L BUN 9 (7-17) mg/dL Creatinine 0.67 (0.52-1.04) mg/dL Est GFR (CKD-EPI)AfAm >90 (>60 ml/min/1.73 sqM) Est GFR (CKD-EPI)NonAf >90 (>60 ml/min/1.73 sqM) Glucose 98 (74-99) mg/dL Calcium 9.8 (8.4-10.2) mg/dL Magnesium 1.8 (1.6-2.3) mg/dL Total Bilirubin 0.9 (0.2-1.3) mg/dL AST 31 (14-36) U/L ALT 26 (4-34) U/L Alkaline Phosphatase 83 (38-126) U/L Troponin I (0.000-0.034) ng/mL Total Protein 7.7 (6.3-8.2) g/dL Albumin 4.6 (3.5-5.0) g/dL TSH 0.054 L (0.465-4.680) mIU/L Free T4 1.80 (0.78-2.19) ng/dL 01/24/23 Range/Units 12:24 WBC (3.8-10.6) k/uL RBC (3.80-5.40) m/uL Hgb (11.4-16.0) gm/dL Hct (34.0-46.0) % MCV (80.0-100.0) fL MCH (25.0-35.0) pg MCHC (31.0-37.0) g/dL RDW (11.5-15.5) % Plt Count (150-450) k/uL MPV Neutrophils % % Lymphocytes % % Monocytes % % Eosinophils % % Basophils % % Neutrophils # (1.3-7.7) k/uL Lymphocytes # (1.0-4.8) k/uL Monocytes # (0-1.0) k/uL Eosinophils # (0-0.7) k/uL Basophils # (0-0.2) k/uL PT (9.0-12.0) sec INR (<1.2) APTT (22.0-30.0) sec Sodium (137-145) mmol/L Potassium (3.5-5.1) mmol/L Chloride (98-107) mmol/L Carbon Dioxide (22-30) mmol/L Anion Gap mmol/L BUN (7-17) mg/dL Creatinine (0.52-1.04) mg/dL Est GFR (CKD-EPI)AfAm (>60 ml/min/1.73 sqM) Est GFR (CKD-EPI)NonAf (>60 ml/min/1.73 sqM) Glucose (74-99) mg/dL Calcium (8.4-10.2) mg/dL Magnesium (1.6-2.3) mg/dL Total Bilirubin (0.2-1.3) mg/dL AST (14-36) U/L ALT (4-34) U/L Alkaline Phosphatase (38-126) U/L Troponin I <0.012 (0.000-0.034) ng/mL Total Protein (6.3-8.2) g/dL Albumin (3.5-5.0) g/dL TSH (0.465-4.680) mIU/L Free T4 (0.78-2.19) ng/dL Disposition Clinical Impression: Palpitations, Atrial fibrillation with RVR Disposition: ADMITTED IP TO THIS [facility] Condition: Stable Is patient prescribed a controlled substance at d/c from ED?: No Time of Disposition: 14:35 Decision to Admit Reason: Admit from EC Decision Date: 01/24/23 Decision Time: 14:35
[2023-01-24 12:38] LABS: Basophils % (A) 0 %; Eosinophils # (A) 0.1 k/uL (0-0.7); Eosinophils % (A) 1 %; HCT 42.4 % (34.0-46.0); Lymphocytes # (A) 1.3 k/uL (1.0-4.8); Lymphocytes % (A) 9 %; Mean Platelet Volume 7.2; Monocytes # (A) 0.6 k/uL (0-1.0); Monocytes % (A) 5 %; Neutrophils # (A) 11.3 k/uL (1.3-7.7); Neutrophils % (A) 84 %; Platelet Count 337 k/uL (150-450); RBC 4.38 m/uL (3.80-5.40); RDW 12.9 % (11.5-15.5); WBC 13.5 k/uL (3.8-10.6)
[2023-01-24] MEDS ORDERED: DILTIAZEM DRIP BOLUS FROM BAG 1 MG SOLN IV ONE (12:40)
[2023-01-24 12:57] LABS: ALT 26 U/L (4-34); AST 31 U/L (14-36); African American GFR (CKD) >90 (>60 ml/min/1.73 sqM); Albumin 4.6 g/dL (3.5-5.0); Alkaline Phosphatase 83 U/L (38-126); Anion Gap 10 mmol/L; Blood Urea Nitrogen 9 mg/dL (7-17); Calcium 9.8 mg/dL (8.4-10.2); Carbon Dioxide 27 mmol/L (22-30); Chloride 98 mmol/L (98-107); Glucose 98 mg/dL (74-99); Magnesium 1.8 mg/dL (1.6-2.3); Non-African American GFR(CKD) >90 (>60 ml/min/1.73 sqM); Potassium 3.7 mmol/L (3.5-5.1); Sodium 135 mmol/L (137-145); Total Bilirubin 0.9 mg/dL (0.2-1.3); Total Protein 7.7 g/dL (6.3-8.2)
[2023-01-24] MEDS ORDERED: DILTIAZEM 125 MG in SODIUM CHLORIDE 0.9% 100 ML IV SCH (13:00)
[2023-01-24 13:15] LABS: INR 0.9 (<1.2); Partial Thromboplastin Time 28.1 sec (22.0-30.0); Prothrombin Time 10.1 sec (9.0-12.0)
--- NOTE | 2023-01-24 13:30 | XR ---
EXAMINATION TYPE: XR chest 2V DATE OF EXAM: 01/24/2023 COMPARISON: 02/20/2021 INDICATION: Dysrhythmia A. fib TECHNIQUE: Frontal and lateral views of the chest are obtained. FINDINGS: The heart size is normal. The pulmonary vasculature is normal. The lungs are clear. IMPRESSION: 1. No acute pulmonary process.
[2023-01-24] MEDS ORDERED: SODIUM CHLORIDE 0.9% 1,000 ML IV ONE (14:12)
[2023-01-24] MEDS ORDERED: NALOXONE 0.4 MG/ML 1 ML VIAL IV PRN (14:35)
[2023-01-24] MEDS ORDERED: ONDANSETRON 4 MG/2 ML VIAL IVP PRN (16:37)
[2023-01-24] MEDS ORDERED: MELATONIN 3 MG TABLET PO PRN (16:37)
--- NOTE | 2023-01-24 16:39 | P.HPIM ---
History of Present Illness H&P Date: 01/24/23 Patient is a 67-year-old female with known A. fib, hypothyroidism, and high blood pressure who presented to the emergency department with complaints of palpitations. On arrival to the ER her pulse was 125. Lab work remarkable for white blood cell count of 13.5, TSH of 0.054, and sodium of 135. Chest x-ray demonstrated shows no acute cardiopulmonary process In the ER she was given a dose of 10 mg of Cardizem IV push 1 and then a Cardizem drip was ordered. Arrangements are made for admission. Patient seen and examined at bedside. She reports that she woke up in the middl e the night with an unusual headache. She took some Tylenol with back to sleep. She again had a headache upon aching this morning. She then just felt slightly off. She then developed palpitations when she went to lay down associated with some mild nausea, lightheadedness, and diaphoresis. He denies any overt chest pain. She denies any recent changes in her medications, missing a dose of medi cations. No recent alcohol intake. 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 No recent cough, cold, fever, flu, nausea, vomiting, diarrhea, or dysuria Vital signs reviewed General: nontoxic, no distress, appears at stated age Derm: warm, dry Eyes: EOMI, no lid lag, anicteric sclera, Cardiovascular: S1S2 reg, no murmur, positive posterior tibial pulse bilateral, no edema, Lungs: clear to auscultation bilateral, no rhonchi, no rales, no wheeze, no accessory muscle use Abdominal: soft, nontender to palpation, no guarding, no appreciable organomegaly, normal bowel sounds Ext: no gross muscle atrophy, moving all 4 studies independently, no contractures Neuro: CN II-XII grossly intact, no focal neuro deficits Psych: Alert, oriented, appropriate affect Assessment/plan: Atrial fibrillation with rapid ventricular response, now in normal sinus rhythm -Case discussed with ER and decision is made to place patient in observation -Stop Cardizem drip as patient has converted to normal sinus rhythm, start Cardizem 30 mg by mouth 3 times a day -Telemetry -Follow serial troponins -Echocardiogram -Consult cardiology -Continue with Eliquis Hypertension, controlled -Resume home hydrochlorothiazide 25 mg daily, Coreg 18.75 mg twice daily Dyslipidemia -Lipitor 20 mg at night, fish oil 1 cap twice daily Imaging: As per HPI Data Review: Vital signs reviewed and pulse 116, respiratory rate 20, blood pressure 95/74, O2 sat 97% on room air Labs reviewed and white blood cell count 13.5 The patient is placed in observation with an anticipated left than 2 midnight stay for evaluation of atrial fibrillation with rapid ventricular response DVT prophylaxis: Eliquis Anticipated discharge date: 24-[address]: home This dictation was prepared using Localist voice recognition software. Though every attempt is made to correct errors during dictation some may still exist. Past Medical History Past Medical History: Atrial Fibrillation, Atrial Flutter, CVA/TIA, Hyperlipidemia, Hypertension, Myocardial Infarction ([place]), Osteoarthritis (OA), Thyroid Disorder History of Any Multi-Drug Resistant Organisms: None Reported Past Surgical History: Appendectomy, Tubal Ligation Additional Past Surgical History / Comment(s): Cataract, orthopedic procedures, loop recorder Past Psychological History: No Psychological Hx Reported Smoking Status: Former smoker Past Alcohol Use History: None Reported Past Drug Use History: None Reported Medications and Allergies Home Medications Medication Instructions Recorded Confirmed Type Acetaminophen [Tylenol Arthritis] 650 mg PO DAILY PRN 01/24/23 01/24/23 History Aloe Vera/Meka Root 1 tab PO DAILY 01/24/23 01/24/23 History Apixaban [Eliquis] 5 mg PO BID 01/24/23 01/24/23 History Atorvastatin [Lipitor] 20 mg PO HS 01/24/23 01/24/23 History Cholecalciferol [Vitamin D3 (125 125 mcg PO DAILY 01/24/23 01/24/23 History Mcg = 5000 Iu)] Curcumin-Phosphatidylcholine 500 mg PO BID 01/24/23 01/24/23 History [Curcumin Phytosome] Famotidine [Pepcid] 20 mg PO BID 01/24/23 01/24/23 History Levothyroxine Sodium [Synthroid] 137 mcg PO MOTUWETHFRSA@0 01/24/23 01/24/23 History Levothyroxine Sodium [Synthroid] 205.5 mcg PO PARNELL@0 01/24/23 01/24/23 History Magnesium 200 mg PO DAILY 01/24/23 01/24/23 History Meclizine [Antivert] 25 mg PO TID PRN 01/24/23 01/24/23 History [place]-3/Dha/Epa/Fish Oil [Fish Oil 1 cap PO BID 01/24/23 01/24/23 History 1,000 mg Softgel] Prevagen 1 cap PO DAILY 01/24/23 01/24/23 History Vit C/E/Zn/Coppr/Lutein/Zeaxan 1 cap PO BID 01/24/23 01/24/23 History [Preservision Areds 2 Softgel] carvediloL [Coreg] 18.75 mg PO BID 01/24/23 01/24/23 History hydroCHLOROthiazide [Hydrodiuril] 25 mg PO DAILY 01/24/23 01/24/23 History Allergies Allergy/AdvReac Type Severity Reaction Status Date / Time azithromycin Allergy Rash/Hives Verified 01/24/23 11:49 [From Zithromax Z-Lorenzo] clindamycin Allergy Rash/Hives Verified 01/24/23 11:49 omeprazole Allergy Headache/GI Verified 01/24/23 13:46 Upset Penicillins Allergy Rash/Hives Verified 01/24/23 13:46 codeine AdvReac Nausea Verified 01/24/23 11:49 [From Tylenol-Codeine] Physical Exam Osteopathic Statement: *. No significant issues noted on an osteopathic structural exam other than those noted in the History and Physical/Consult. Vitals: Vital Signs Temp Pulse Resp BP Pulse Ox 01/24/23 16:00 76 14 123/69 98 01/24/23 15:00 80 20 115/69 97 01/24/23 14:00 128 H 17 95/60 97 01/24/23 13:37 116 H 20 95/74 97 01/24/23 13:00 138 H 9 L 127/68 96 01/24/23 12:40 127/68 01/24/23 12:20 29 H 123/83 01/24/23 12:10 151 H 23 123/83 01/24/23 11:46 98.2 F 125 H 18 169/73 98 Intake and Output 01/24/23 01/24/23 01/24/23 06:59 14:59 22:59 Other: Weight 80.739 kg Results CBC & Chem 7: 01/24/23 12:24 01/24/23 12:24 Labs: Abnormal Lab Results - Last 24 Hours (Table) 01/24/23 01/24/23 Range/Units 12:24 12:24 WBC 13.5 H (3.8-10.6) k/uL Neutrophils # 11.3 H (1.3-7.7) k/uL Sodium 135 L (137-145) mmol/L TSH 0.054 L (0.465-4.680) mIU/L
[2023-01-24] MEDS: DILTIAZEM ORAL 30 MG TAB PO SCH ×2 (16:42→21:44)
[2023-01-24] MEDS: carvediloL 12.5 MG TAB PO SCH (17:46)
[2023-01-24] MEDS ORDERED: ATORVASTATIN 20 MG TAB PO SCH (21:00)
[2023-01-24] MEDS: APIXABAN 5 MG TAB PO SCH (21:22)
[2023-01-24] MEDS: FAMOTIDINE 20 MG TAB PO SCH (21:22)
[2023-01-25] MEDS ORDERED: LEVOTHYROXINE 137 MCG TAB PO SCH (01:30)
[2023-01-25 08:14] VITALS: BP 105/58; PULSE 80; RESP 14; TEMP 98.7
[2023-01-25] MEDS: carvediloL 12.5 MG TAB PO SCH (08:50)
[2023-01-25] MEDS: APIXABAN 5 MG TAB PO SCH (08:50)
[2023-01-25] MEDS: FAMOTIDINE 20 MG TAB PO SCH (08:50)
[2023-01-25] MEDS ORDERED: DILTIAZEM CD 120 MG CAP.ER.24H PO SCH (09:00)
[2023-01-25] MEDS ORDERED: hydroCHLOROthiazide 25 MG TAB PO SCH (09:00)
[2023-01-25 09:32] LABS: Basophils # (A) 0.07 X 10*3/uL (0.00-0.10); Basophils % (A) 0.6 %; Eosinophils # (A) 0.07 X 10*3/uL (0.04-0.35); Eosinophils % (A) 0.6 %; HCT 35.6 % (37.2-46.3); HGB 11.8 d/dL (12.0-15.0); Lymphocytes # (A) 1.39 X 10*3/uL (0.90-5.00); MCH 32.3 pg (27.0-32.0); MCHC 33.1 d/dL (32.0-37.0); MCV 97.5 FL (80.0-97.0); Mean Platelet Volume 9.6 FL (9.5-12.2); Monocytes % (A) 9.5 %; NRBC Per 100 WBC 0 X 10*3/uL (0.00-0.01); Neutrophils # (A) 8.95 X 10*3/uL (1.80-7.70); Platelet Count 269 X 10*3/uL (140-440); RBC 3.65 X 10*6/uL (4.10-5.20); RDW 13.1 % (11.5-14.5); WBC 11.62 X 10*3/uL (4.50-10.00)
[2023-01-25 10:16] LABS: BUN/Creat Ratio 10.57 Ratio (12.00-20.00); Blood Urea Nitrogen 7.4 mg/dL (9.0-27.0); Chloride 102 mmol/L (96-109); Glucose 99 mg/dL (70-110); Potassium 3.6 mmol/L (3.5-5.5); Sodium 137 mmol/L (135-145)
--- NOTE | 2023-01-25 10:23 | CONS ---
CONSULTATION CHIEF COMPLAINT: Paroxysmal atrial fibrillation. HISTORY OF PRESENT ILLNESS: This is a 67-year-old lady with history of hypothyroidism, paroxysmal atrial fibrillation, dyslipidemia, and history of TIA, who presents to hospital as she noticed an irregular heart rhythm and a fast heart rate on her Fitbit device. She does not have chest pain, difficulty in breathing, dizziness, syncope, leg edema, PND, or orthopnea. Since being admitted, she has been in sinus rhythm. The very first EKG showed sinus rhythm with PACs. She did not have any episodes of atrial fibrillation. She had three sets of troponins that are negative. TSH is low, but the free T4 is 1.8, creatinine is 0.6. Hemoglobin is 14, white cell count is elevated at 13.5. PAST MEDICAL HISTORY: Significant for, 1. Paroxysmal atrial fibrillation. 2. Hypothyroidism. 3. Dyslipidemia. MEDICATIONS: Include: 1. Eliquis 5 b.i.d. 2. Synthroid. 3. HydroDIURIL. 4. Coreg. 5. Atorvastatin. 6. Antivert. 7. The patient is also on Cardizem CD 120 daily. ALLERGIES: To, 1. Clindamycin. 2. Omeprazole. 3. Penicillin. 4. Codeine. 5. Zithromax. FAMILY HISTORY: Negative for premature coronary artery disease. SOCIAL HISTORY: Negative for current smoking, EtOH abuse, or drug abuse. REVIEW OF SYSTEMS: review of systems has been performed. Pertinent are as documented. PHYSICAL EXAMINATION: GENERAL: Comfortable at rest. VITAL SIGNS: Stable. NECK: There is no jugular venous distention. Carotid upstroke is normal. There is no bruit. CHEST: Reveals good air entry bilaterally. HEART: Reveals first and second heart sounds. No gallop. No murmur. No rub. ABDOMEN: Soft, nontender. EXTREMITIES: Did not reveal any edema. Peripheral pulses are felt. LITHOPRESS OPERATOR: Did not reveal focal neurological deficits. ASSESSMENT: 1. Paroxysmal atrial fibrillation. 2. Hypertension. PLAN: The patient is already on Eliquis, which she is going to continue. We have not really been able to document any cardiac arrhythmia on this admission, home today, and she follows with a equity research analyst in the [facility]. She is going to follow up with them and have further workup. MMODL / IJN: [id number] /
--- NOTE | 2023-01-25 14:04 | P.DS ---
Providers Date of admission: 01/24/23 14:36 Expected date of discharge: 01/25/23 Attending physician: Duarte Denton MD Consults: 01/24/23 14:35 Consult Physician Urgent Consulting Provider: [facility] Consult Reason/Comments: afib with rvr, hx afib Do you want consulting provider notified?: Yes Primary care physician: Bird Mike [facility] Course: Discharge Diagnosis: Atrial fibrillation with rapid ventricular response, now in normal sinus rhythm Hypertension, controlled Dyslipidemia Hospital Course: Patient is a 67-year-old female with known A. fib, hypothyroidism, and high blood pressure who presented to the emergency department with complaints of palpitations. On arrival to the ER her pulse was 125. Lab work remarkable for white blood cell count of 13.5, TSH of 0.054, and sodium of 135. Chest x-ray demonstrated shows no acute cardiopulmonary process In the ER she was given a dose of 10 mg of Cardizem IV push 1 and then a Cardizem drip was ordered. Arrangements are made for admission. She converted to normal sinus rhythm and her Cardizem drip was discontinued. She was transitioned to oral Cardizem. She was monitored overnight and had no recurrence of her A. fib. Her troponin remained negative. She was seen by cardiology and determined stable for discharge. Follow-up: Additional medications Cardizem CD 120 mg daily. She will follow with her primary manager marketing communication who is out of town. I discussed that she may benefit from repeat echocardiogram if this has not been done recently. She is in agreement. She'll also follow with Dr. Mike in 2-3 days. Patient seen and examined at bedside. No additional palpitations, chest discomfort, nausea, or headaches. Vital signs reviewed and stable. General: nontoxic, no distress, appears at stated age Cardiovascular: S1S2 reg, no murmur, positive posterior tibial pulse bilateral, Lungs: CTA bilateral, no rhonchi, no rales , no accessory muscle use Abdominal: soft, nontender to palpation, no guarding, no appreciable organomegaly Ext: no gross muscle atrophy, no edema b/l lower extremities, no contractures Neuro: CN II-XI grossly intact, no focal neuro deficits Psych: Alert, oriented, appropriate affect A total of 25 minutes of time were spent preparing this complex discharge summary. Patient was discharged on 01/25/23. This dictation was prepared using [employer] voice recognition software. Though every attempt is made to correct errors during dictation some may still exist. Patient Condition at Discharge: Stable Plan - Discharge Summary Discharge Rx Participant: Yes New Discharge Prescriptions: New Diltiazem Cd [Cardizem CD] 120 mg PO DAILY #30 cap Continue Magnesium 200 mg PO DAILY Turney-3/Dha/Epa/Fish Oil [Fish Oil 1,000 mg Softgel] 1 cap PO BID Atorvastatin [Lipitor] 20 mg PO HS carvediloL [Coreg] 18.75 mg PO BID Famotidine [Pepcid] 20 mg PO BID Levothyroxine Sodium [Synthroid] 205.5 mcg PO PARNELL@0130 Apixaban [Eliquis] 5 mg PO BID Vit C/E/Zn/Coppr/Lutein/Zeaxan [Preservision Areds 2 Softgel] 1 cap PO BID Meclizine [Antivert] 25 mg PO TID PRN PRN Reason: Vertigo Acetaminophen [Tylenol Arthritis] 650 mg PO DAILY PRN PRN Reason: Pain Prevagen 1 cap PO DAILY Curcumin-Phosphatidylcholine [Curcumin Phytosome] 500 mg PO BID Cholecalciferol [Vitamin D3 (125 Mcg = 5000 Iu)] 125 mcg PO DAILY hydroCHLOROthiazide [Hydrodiuril] 25 mg PO DAILY Levothyroxine Sodium [Synthroid] 137 mcg PO MOTUWETHFRSA@0130 Aloe Vera/Meka Root 1 tab PO DAILY Discharge Medication List Acetaminophen [Tylenol Arthritis] 650 mg PO DAILY PRN 01/24/23 [History] Aloe Vera/Meka Root 1 tab PO DAILY 01/24/23 [History] Apixaban [Eliquis] 5 mg PO BID 01/24/23 [History] Atorvastatin [Lipitor] 20 mg PO HS 01/24/23 [History] Cholecalciferol [Vitamin D3 (125 Mcg = 5000 Iu)] 125 mcg PO DAILY 01/24/23 [History] Curcumin-Phosphatidylcholine [Curcumin Phytosome] 500 mg PO BID 01/24/23 [His tory] Famotidine [Pepcid] 20 mg PO BID 01/24/23 [History] Levothyroxine Sodium [Synthroid] 137 mcg PO MOTUWETHFRSA@0130 01/24/23 [History] Levothyroxine Sodium [Synthroid] 205.5 mcg PO PARNELL@0130 07/01/23 [History] Magnesium 200 mg PO DAILY 01/24/23 [History] Meclizine [Antivert] 25 mg PO TID PRN 01/24/23 [History] Turney-3/Dha/Epa/Fish Oil [Fish Oil 1,000 mg Softgel] 1 cap PO BID 01/24/23 [History] Prevagen 1 cap PO DAILY 01/24/23 [History] Vit C/E/Zn/Coppr/Lutein/Zeaxan [Preservision Areds 2 Softgel] 1 cap PO BID 01/24/23 [History] carvediloL [Coreg] 18.75 mg PO BID 01/24/23 [History] hydroCHLOROthiazide [Hydrodiuril] 25 mg PO DAILY 01/24/23 [History] Diltiazem Cd [Cardizem CD] 120 mg PO DAILY #30 cap 01/25/23 [Rx] Follow up Appointment(s)/Referral(s): Christiano Mike MD [Primary Care Provider] - 1-2 days Patient Instructions/Handouts: A-fib (Atrial Fibrillation) (GEN) Activity/Diet/Wound Care/Special Instructions: Activity: as tolerated Diet: Heart healthy Special Instructions: Please follow-up with your primary manager marketing communication Discharge Disposition: HOME SELF-CARE
[2023-01-26] MEDS ORDERED: LEVOTHYROXINE 137 MCG TAB PO SCH (01:30)
== END 2023-01-25 12:08 | disposition home or self-care (01) ==
LOC: EC 11:44 → 6NMEDSUR 14:36
PROVIDERS: ADMIT Internal Medicine; ATTEND Internal Medicine
DX: I48.0 Paroxysmal atrial fibrillation (principal); E78.5 Hyperlipidemia, unspecified; I25.2 Old myocardial infarction; E03.9 Hypothyroidism, unspecified; I48.92 Unspecified atrial flutter; I10 Essential (primary) hypertension; Z79.899 Other long term (current) drug therapy; Z79.01 Long term (current) use of anticoagulants; Z79.890 Hormone replacement therapy; Z88.1 Allergy status to other antibiotic agents; Z88.0 Allergy status to penicillin; Z88.8 Allergy status to other drugs, medicaments and biological substances; Z86.73 Personal history of transient ischemic attack (TIA), and cerebral infarction without residual deficits; Z98.51 Tubal ligation status; Z87.891 Personal history of nicotine dependence
CPT/HCPCS: 96374; 99285; 36415; 94760; 93005; 84439; 80053; 80048; 84443; 83735; 84484; 85025 ×2; 85610; 85730; 71046; G0378 ×2

== ENCOUNTER → 2023-02-27 | Outpatient (CLI) | payer MEDICARE ==
--- NOTE | 2023-03-02 15:35 | MM ---
Reason for Exam: Screening (asymptomatic). Last mammogram was performed 1 year(s) and 1 month(s) ago. Patient History: Menarche at age 14. First Full-Term at age 27. Postmenopausal. Estrogen for 1 year, 6 months, from age 45 until age 47. Hormonal Contraceptives for 2 years from age 19 until age 23. Risk Values: [place] 5 year model risk: 1.9%. NCI Lifetime model risk: 6.7%. Prior Study Comparison: 01/20/2020 Bilateral Screening Mammogram, [facility]. 01/31/2021 Bilateral Screening Mammogram, [facility]. 02/03/2022 Bilateral MG screening mammo w CAD, [facility]. Tissue Density: There are scattered fibroglandular densities. Findings: Analyzed By CAD. The pattern appears symmetrical and stable. A mole is marked on the left breast. No significant interval changes are evident. Benign spherical calcification is within the left breast. No suspicious groups of microcalcifications, spiculated or lobular masses, architectural distortion or other secondary signs of malignancy are mammographically apparent. Overall Assessment: Benign, BI-RAD 2 Management: Screening Mammogram of both breasts in 1 year. A negative mammogram report should not preclude additional follow up of suspicious palpable abnormalities. Patient should continue monthly self breast exam. A clinical breast exam by your physician is recommended on an annual basis and results should be correlated with mammographic findings. Electronically signed and approved by: Kartik Barcenas D.O. Radiologis
== END | disposition home or self-care (01) ==
LOC: RADMAMWWP 10:38
PROVIDERS: ATTEND Obstetrics & Gynecology
DX: Z12.31 Encounter for screening mammogram for malignant neoplasm of breast (principal); Z78.0 Asymptomatic menopausal state
CPT/HCPCS: 77067

== ENCOUNTER → 2023-03-19 | Outpatient (CLI) | payer MEDICARE ==
[2023-03-19 19:55] LABS: T4, Free (Free Thyroxine) 1.41 ng/dL (0.80-1.80)
== END | disposition home or self-care (01) ==
LOC: LABWHC1 13:04
PROVIDERS: ATTEND Family Medicine
DX: E03.9 Hypothyroidism, unspecified (principal)
CPT/HCPCS: 36415; 84439; 84443; 84481

== ENCOUNTER → 2023-09-15 | Outpatient (CLI) | payer MEDICARE ==
[2023-09-15 16:47] LABS: HCT 40.8 % (37.2-46.3); HGB 12.9 g/dL (12.0-15.0); MCH 31.2 pg (27.0-32.0); MCHC 31.6 g/dL (32.0-37.0); MCV 98.8 FL (80.0-97.0); NRBC Per 100 WBC 0 X 10*3/uL (0.00-0.01); Platelet Count 351 X 10*3/uL (140-440); RBC 4.13 X 10*6/uL (4.10-5.20); RDW 14.3 % (11.5-14.5); WBC 5.66 X 10*3/uL (4.50-10.00)
[2023-09-15 17:09] LABS: ALT 22 U/L (8-44); AST 21 U/L (13-35); Albumin 4.6 g/dL (3.8-4.9); Albumin/Globulin Ratio 2.09 Ratio (1.60-3.17); Alkaline Phosphatase 71 U/L (41-126); BUN/Creat Ratio 10.44 Ratio (12.00-20.00); Blood Urea Nitrogen 9.4 mg/dL (9.0-27.0); Carbon Dioxide 28.2 mmol/L (21.6-31.8); Chloride 100 mmol/L (96-109); Chol/HDL Ratio 5.17 Ratio; Globulin 2.2 g/dL (1.6-3.3); Glucose 89 mg/dL (70-110); LDL Cholesterol,Calculated 202.7 mg/dL (0.0-131.0); Potassium 3.8 mmol/L (3.5-5.5); Sodium 140 mmol/L (135-145); T4, Free (Free Thyroxine) 1.37 ng/dL (0.80-1.80); Total Bilirubin 0.5 mg/dL (0.3-1.2); Total Protein 6.8 g/dL (6.2-8.2)
== END | disposition home or self-care (01) ==
LOC: LABWHC1 09:45
PROVIDERS: ATTEND Family Medicine
DX: Z00.01 Encounter for general adult medical examination with abnormal findings (principal); E55.9 Vitamin D deficiency, unspecified; G62.9 Polyneuropathy, unspecified; E66.3 Overweight; R53.83 Other fatigue
CPT/HCPCS: 36415; 80053; 80061; 82306; 83036; 84439; 84443; 84481; 85027

== ENCOUNTER → 2023-11-06 | Outpatient (CLI) | payer MEDICARE ==
[2023-11-06 16:42] LABS: T4, Free (Free Thyroxine) 1.53 ng/dL (0.80-1.80)
== END | disposition home or self-care (01) ==
LOC: LABWHC1 10:36
PROVIDERS: ATTEND Family Medicine
DX: E03.9 Hypothyroidism, unspecified (principal)
CPT/HCPCS: 36415; 84439; 84443; 84481

== ENCOUNTER → 2023-11-20 | Outpatient (CLI) | payer MEDICARE ==
[2023-11-20 09:28] LABS: Partial Thromboplastin Time 28.8 sec (22.0-30.0); Prothrombin Time 10.6 sec (10.0-12.5)
[2023-11-20 15:43] LABS: Basophils # (A) 0.09 X 10*3/uL (0.00-0.10); Eosinophils # (A) 0.17 X 10*3/uL (0.04-0.35); Eosinophils % (A) 3.8 %; HCT 42.4 % (37.2-46.3); HGB 13.6 g/dL (12.0-15.0); Lymphocytes # (A) 1.11 X 10*3/uL (0.90-5.00); Lymphocytes % (A) 24.7 %; MCH 31.9 pg (27.0-32.0); MCHC 32.1 g/dL (32.0-37.0); MCV 99.3 FL (80.0-97.0); Mean Platelet Volume 8.9 FL (9.5-12.2); Monocytes # (A) 0.43 X 10*3/uL (0.20-1.00); Monocytes % (A) 9.6 %; NRBC Per 100 WBC 0 X 10*3/uL (0.00-0.01); Neutrophils # (A) 2.68 X 10*3/uL (1.80-7.70); Neutrophils % (A) 59.7 %; Platelet Count 352 X 10*3/uL (140-440); RBC 4.27 X 10*6/uL (4.10-5.20); WBC 4.49 X 10*3/uL (4.50-10.00)
[2023-11-20 15:50] LABS: BUN/Creat Ratio 11.57 Ratio (12.00-20.00); Blood Urea Nitrogen 8.1 mg/dL (9.0-27.0); Glucose 90 mg/dL (70-110)
[2023-11-20 15:51] LABS: ALT 24 U/L (8-44); AST 22 U/L (13-35); Albumin 4.8 g/dL (3.8-4.9); Alkaline Phosphatase 71 U/L (41-126); Calcium 9.8 mg/dL (8.7-10.3); Carbon Dioxide 29.9 mmol/L (21.6-31.8); Chloride 102 mmol/L (96-109); Globulin 2.4 g/dL (1.6-3.3); Potassium 3.8 mmol/L (3.5-5.5); Sodium 142 mmol/L (135-145); Total Bilirubin 0.6 mg/dL (0.3-1.2); Total Protein 7.2 g/dL (6.2-8.2)
== END | disposition home or self-care (01) ==
LOC: LABWHC1 08:48
PROVIDERS: ATTEND Orthopaedic Surgery Sports Medicine
DX: Z01.812 Encounter for preprocedural laboratory examination (principal); Z22.322 Carrier or suspected carrier of Methicillin resistant Staphylococcus aureus
CPT/HCPCS: 36415; 80053; 85025; 85610; 85730; 87070

== ENCOUNTER 2023-12-10 08:16 | Day surgery (SDC) | payer MEDICARE ==
[~2023-12-10 08:16] MED LIST: LIDOCAINE 1% (10MG/ML) FOR IV START INTRADERMA PRN; MIDAZOLAM 2 MG/2 ML VIAL IV PRN; TRANEXAMIC 1,000 MG/100ML-NACL 1,000 MG in SALINE 1 100ML.BAG IVPB PRN
[2023-12-10] MEDS: LACTATED RINGERS 1,000 ML IV SCH ×2 (08:47→21:04)
[2023-12-10] MEDS: MIDAZOLAM 2 MG/2 ML VIAL IVP ONE (09:11)
[2023-12-10] MEDS ORDERED: NA PHOS,M-B/NA PHOS,DI-BA 133 ML ENEMA RECTAL PRN (09:18)
[2023-12-10] MEDS ORDERED: diazePAM 5 MG TAB PO PRN (09:18)
[2023-12-10] MEDS ORDERED: NALOXONE 0.4 MG/ML 1 ML VIAL IV PRN (09:18)
[2023-12-10] MEDS ORDERED: traMADol 50 MG TAB PO PRN (09:18)
[2023-12-10] MEDS ORDERED: bisacodyL 10 MG SUPP RECTAL PRN (09:18)
[2023-12-10] MEDS ORDERED: MAGNESIUM HYDROXIDE 2,400 MG/30 ML CUP PO PRN (09:18)
[2023-12-10] MEDS ORDERED: ACETAMINOPHEN TAB 325 MG TAB PO PRN (09:18)
[2023-12-10] MEDS ORDERED: HYDROmorphone 0.5 MG/0.5 ML SYRINGE IVP PRN ×2 (09:18)
[2023-12-10] MEDS ORDERED: HYDROcodone/APAP 7.5-325MG 1 EACH TAB PO PRN (09:22)
[2023-12-10] MEDS: ACETAMINOPHEN TAB 500 MG TAB PO PRN (09:34)
[2023-12-10] MEDS: GABAPENTIN 300 MG CAP PO PRN (09:34)
[2023-12-10] MEDS: ONDANSETRON 4 MG/2 ML VIAL IVP PRN ×2 (09:34→17:54)
[2023-12-10] MEDS: MELOXICAM 7.5 MG TAB PO PRN (09:34)
[2023-12-10] MEDS: DEXAMETHASONE SOD PHOSPHATE 4 MG/ML 1 ML VIAL IV ONE (09:34)
--- NOTE | 2023-12-10 09:36 | P.ANPRN ---
Procedure Note - Anesthesia - Nerve Block Performed Left Shimack Single Time Out Performed: Yes Date of Procedure: 12/10/23 Procedure Start Time: 09:10 Procedure Stop Time: 09:15 Location of Patient: PreOp Indication: Acute Post-Operative Pain, Analgesia, Requested by Surgeon Sedation Type: Sedate with meaningful contact maintained Preparation: Sterile Prep Position: Right Lateral Catheter: None Needle Types: Pajunk Ultrasound used to visualize needle placement: Yes Ultrasound used to observe medication spread: Yes Injectate: 0.5% Ropivacaine (see comment for volume) (Ropiv 20ml+decadron 4mg.) Blood Aspirated: No Pain Paresthesia on Injection Noted: No Resistance on Injection: Normal Image Stored and Saved: Yes Events: Uneventful and Well Tolerated
[2023-12-10] MEDS ORDERED: ROPIVACAINE 1,100 MG, SODIUM CHLORIDE 0.9% 500 ML 330 ML, EMPTY PAIN BALL 1 EACH MISCELLANE PRN (09:38)
--- NOTE | 2023-12-10 09:38 | P.ANPRN ---
Procedure Note - Anesthesia - Nerve Block Performed Left Adductor Canal Infusion Time Out Performed: Yes Date of Procedure: 12/10/23 Procedure Start Time: Procedure Stop Time: Location of Patient: PreOp Indication: Acute Post-Operative Pain, Analgesia, Requested by Surgeon Sedation Type: Sedate with meaningful contact maintained Preparation: Sterile Prep Position: Supine Catheter: Indwelling Needle Types: On-Q Ultrasound used to visualize needle placement: Yes Ultrasound used to observe medication spread: Yes Injectate: 0.5% Ropivacaine (see comment for volume) (Ropiv 20ml +decadron 4mg) Blood Aspirated: No Pain Paresthesia on Injection Noted: No Resistance on Injection: Normal Image Stored and Saved: Yes Events: Uneventful and Well Tolerated
[2023-12-10] MEDS ORDERED: PROPOFOL 10 MG/ML 20 ML VIAL IV ONE (09:53)
[2023-12-10] MEDS ORDERED: TRANEXAMIC 1,000 MG/100ML-NACL PREMIX BAG ONE (09:53)
[2023-12-10] MEDS ORDERED: fentaNYL (PF) 50 MCG/ML 2 ML AMP ONE (09:53)
[2023-12-10] MEDS ORDERED: ROPIVACAINE 5 MG/ML 30 ML VIAL ONE (09:53)
[2023-12-10] MEDS ORDERED: ROCURONIUM 10 MG/ML (5 ML VIAL) IV ONE (09:53)
[2023-12-10] MEDS ORDERED: HYDROmorphone (PF) 1 MG/ML ONE (09:53)
[2023-12-10] MEDS ORDERED: NEOSTIGMINE 1 MG/ML 10 ML VIAL ONE (09:53)
[2023-12-10] MEDS ORDERED: LIDOCAINE 1% INJ 10MG/ML (20 ML MDV) ONE (09:53)
[2023-12-10] MEDS ORDERED: SUCCINYLCHOLINE CHLORIDE 200 MG/10 ML VIAL IV ONE (09:53)
[2023-12-10] MEDS ORDERED: GLYCOPYRROLATE 0.2 MG/ML 2 ML VIAL ONE (09:53)
[2023-12-10] MEDS ORDERED: ePHEDrine 50 MG/ML 1 ML VIAL ONE (09:53)
[2023-12-10] MEDS ORDERED: DEXAMETHASONE SOD PHOSPHATE 4 MG/ML 1 ML VIAL ONE (09:53)
[2023-12-10] MEDS: ceFAZolin 3,000 MG in SODIUM CHLORIDE 0.9% IRRIGATIO 3,000 ML IRRIGATION ONE (10:25)
[2023-12-10] MEDS: LACTATED RINGERS 1,000 ML IV ONE (11:34)
--- NOTE | 2023-12-10 12:47 | XR ---
EXAMINATION TYPE: XR knee limited LT DATE OF EXAM: 12/10/2023 COMPARISON: NONE HISTORY: 68-year-old female evaluation for postoperative abnormality and alignment. TECHNIQUE: 2 views FINDINGS: Images show placement of left total knee arthroplasty. Both distal femoral and proximal tibial compon ents of the prosthesis are well seated without periprosthetic fracture. Alignment grossly anatomic. T here is anterior soft tissue swelling with soft tissue air as well as intra-articular air in joint fl uid related to recent operation. Suspect large loose bodies posteriorly measuring up to 1.8 cm probab ly located within a Alfaro's cyst. IMPRESSION: Uncomplicated postoperative appearance left total knee arthroplasty. Loose bodies posteriorly measuri ng up to 1.8 cm possibly within a Alfaro's cyst.
--- NOTE | 2023-12-10 13:26 | OP ---
OPERATIVE REPORT DATE OF SERVICE : 12/10/2023 PREOPERATIVE DIAGNOSIS: Left knee osteoarthrosis. POSTOPERATIVE DIAGNOSIS: Left knee osteoarthrosis. OPERATION: Left total knee arthroplasty. ANESTHESIA: General endotracheal. ESTIMATED BLOOD LOSS: 100 mL. TOURNIQUET TIME: 57 minutes at 250 mmHg. COMPLICATIONS: None apparent. DRAINS: None. DISPOSITION: Postanesthesia care unit. INDICATIONS: Aura is a very pleasant 68-year-old female with longstanding history of left knee pain. History and physical examination are consistent with advanced left knee osteoarthrosis. She has been through significant operative management up to this point. Further treatment options were discussed, and she decided to go forward with a left total knee arthroplasty. The risks of procedure were discussed with her in detail. These risks included but were not limited to risk of infection, nerve damage, bleeding, pain, and a small risk of deep vein thrombosis which could lead to fatal pulmonary embolism. There is also small risk of loosening of the implant which could require revision operation. The patient understands these risks. All of her questions were answered to her satisfaction. An appropriate informed consent was obtained. DESCRIPTION OF PROCEDURE: The patient was identified in the preoperative holding area. Surgical site was marked by both the patient and myself. She was given 2 g of Ancef IV for prophylactic purposes. She was then transported to the operative suite. She was placed supine on the operating room table. A general anesthetic was then administered and dosed per the anesthesia without apparent complication. Examination under anesthesia was then performed. The patient was 5 to 7 degrees shy of full extension. She had 100 degrees of flexion. Medial collateral ligament, lateral collateral ligament, posterior cruciate ligaments were stable. Tourniquet was then placed high on the left upper thigh well-padded in preparation for surgery. The patient's left lower extremity was then prepped and draped in usual sterile fashion. Standard surgical pause was undertaken to ensure that we were operating the correct site and that appropriate preoperative antibiotics had been given. All staff in room were in agreement, and we proceeded. The outlines of the patella were marked with a surgical pen. A planned 12 cm vertical incision centered over the patella was marked with a surgical pen. The leg was then exsanguinated with an Esmarch dressing. The knee was then flexed, and tourniquet was inflated to 250 mmHg. The total tourniquet time for the procedure was 57 minutes. Incision was then made with a 10-blade scalpel. Dissection was carried down sharply overlying fascia. Great care was taken to minimize the skin flaps. The knee was then exposed using a standard medial parapatellar approach. Small cuff of quadriceps tendon was then left for suturing. She was in a small bit of valgus preoperatively. The minimal medial release was made. Enough was done just to place the medial retractor. The medial meniscus was then excised as well. The lateral meniscus was also released anteriorly. The leg was then externally rotated. The patella was everted. The knee was flexed. Retractors were then placed to protect the collateral ligaments. I then proceeded to remove the infrapatellar fat pad. This excised sharply tangentially fibers of the patellar tendon. I then proceeded to remove the peripheral osteophytes. This was done with a large rongeur. She had multiple large intra-articular loose bodies, which were also removed at this time. I then proceeded with the distal femoral resection. She did have a small flexion contracture. A planned 11-mm resection was then done. The femoral canal and then into the midline the femur approximately 10 mm anterior to the origin of the posterior cruciate ligament. The aliyah was then advanced down the center of the femur and placed intramedullary. Based on the preoperative radiographs, the angle between the anatomic and mechanical axis of the femur was approximately 4 to 5 degrees. The valgus angle of the distal cutting guide was then set at 4 degrees for the left knee. The distal cutting guide was then advanced over the intramedullary aliyah. This was seated firmly against the femur. Then as mentioned planned to take 11 mm off the distal femur. The cutting block was then secured onto the proximal femur with pins. The jig was then removed and the distal femoral cuts were made through the slot of the block. The pins were then removed. The distal cutting block was removed. The accuracy of the distal cuts was checked with 2 flat bars. I then proceeded with femoral sizing. Posterior referencing sizing guide was held firmly against the resected distal surface of the femur. The posterior condyles were resting on the posterior plane of the guide. The sizing guide was then placed on the anterior femur. The size was measured to the size 9. I then assessed for femoral rotation. Planned for 3 degrees of external rotation. Three degrees of external rotation was placed onto the jig. These holes were then marked. I then confirmed the rotation by 3 separate methods. This was done using epicondylar axis as well as Whitesides line and posterior referencing. It was deemed that the external rotation was proper. I then went forward to placing a femoral cutting block. This was placed over the previously placed pin holes. The Ish wing was then placed on the anterior slots to ensure that we would not notch the anterior femur with the anterior femoral cut. I then proceeded with the anterior femoral cut. This was flush with the anterior cortex of the femur. The posterior cuts were then made followed by the anterior chamfer cut, then the posterior chamfer cut. The cutting block was then removed. Throughout the resection, the collateral ligaments were protected with retractors. I then placed a trial size 9 femur. It fit very nice, but it was slightly wide but the narrow fit very nicely, and it fit flush with the distal end of the femur. The drill holes were then made. I then proceeded with the tibial cut. I planned for cruciate-retaining knee. The guide was placed and set for varus valgus and for slope. Height was set for approximately 2 mm resection from the lateral tibial plateau, which was the lower side. I was happy with the alignment and amount of resection. The cutting block was then pinned to the proximal tibia. The alignment aliyah was removed and the proximal tibia was resected with a reciprocating saw. Again, this was done with retractors protecting the collateral ligaments as well as the posterior cruciate ligament. I then proceeded to evaluate the flexion extension gaps. A 10 mm block was then placed. The flexion extension gaps were equal. I then proceeded to resect the posterior osteophytes. She had fairly extensive posterior osteophytes. This was done using a curved osteotome. This resected the posterior osteophytes, and posterior capsular stripping was done off the posterior aspect of the femur at this time. The osteophytes were then removed. She had quite a few posterior loose bodies which were removed as well at this time. I then proceeded with resection of the patella. The patella was very worn down. It had a corrugated appearance. It was relatively thin. The thickness of patella was measured using the caliper. The medial aspect was measured. It was 14 mm. The anticipated patellar dome was taken into account. The resection was then performed, confirmed to be equal in 4 quadrants using a caliper. Approximately 11 mm of bone remained after resection. The area of the lateral third of the patella was very narrow and no resection was done from the lateral 3rd of the patella. A 32 x 8.5 standard patellar trial was then placed. The holes were drilled and the trial was then placed. I then proceeded with sizing tibial plate. A size E tibial plate fit very nicely. I then traced the trial femur the tibial tray and the patellar button. A 10 mm trial tibial insert was also placed. The components fit very nicely. She had full extension, flexion. The extension flexion gaps were equal and stable to both varus and valgus stress. The patella tracked appropriately. Tibial tray rotation was marked with a Bovie. This was externally rotated properly. I then proceeded with the tibial preparation. First drilled the femoral holes and removed the femoral component. The tibial tray was then set for proper external rotation as well as medial lateral placement of the tibia. It was then pinned in place. I then proceeded with punching the keel. I also used 1 of the pins to make small pin holes along the lateral side as this was quite eburnated to allow for cement interdigitation on the lateral side. I then decided to proceed with cementing of all our components. The knee was thoroughly irrigated with sterile saline solution via pulse lavage. The lateral genicular artery was identified and cauterized. All blood was removed from the bone of the tibia femur and the patella with pulsed lavage. I then proceeded with cementing. Two packs of antibiotic bone cement prepared on the back table by technical services representative. I then proceeded with cementing the tibia first. The cement was impacted in the keel as well as deeply seated in bone. A second coat of cement was then placed. The tibia was then impacted into place. Excess cement was removed with Peri's and Jokers. I then proceeded with cementing of the femoral component. The femoral component was also cemented using standard technique. Excess cement was removed. A 10 mm trial insert was then placed in the knee. It was brought into full extension with a constant axial load placed until the cement had hardened. The patellar component was then cemented. This held firmly with a compressive device until the cement had dried. When the cement had dried, the knee was taken out of extension. All excess cement was removed from around the prosthesis. I then trialed the 10 mm insert. Flexion extension gaps were appropriate. The knee was stable. It came into full extension. It was decided to go forward with a 10 mm medial congruent cross-linked cruciate- retaining tibial insert. Polyethylene was then placed on the tibial tray and locked into place. The knee was then reduced. The knee was again further irrigated with sterile saline solution with antibiotic added. The tourniquet was then deflated. Total tourniquet time for the procedure was 57 minutes at 250 mmHg. Final components were Jimbo Persona size 9 narrow cruciate-retaining femoral component, size E tibial tray, a 10 mm medial congruent cruciate-retaining polyethylene insert, and a 32 x 8.5 mm patella. I then proceeded with closure. Again, the knee was thoroughly irrigated. The quadriceps tendon. The medial retinaculum was reapproximated with #2 Ethibond suture. The extensor mechanism was then closed with a running #2 Quill suture. Subcutaneous tissues were closed with 2-0 Vicryl interrupted suture. The skin was closed with a running 3-0 Quill suture. Dermabond was applied to the incision. Sterile compressive dressing was then applied. All sponge and needle counts were deemed correct prior to closure. The patient tolerated the procedure without apparent complication. She was transferred to the recovery room in stable condition. MMODL / IJN: [id number] /
[2023-12-10] MEDS: HYDROmorphone 0.5 MG/0.5 ML SYRINGE IVP PRN ×2 (13:29→19:52)
[2023-12-10] MEDS: HYDROcodone/APAP 7.5-325MG 1 EACH TAB PO PRN (16:19)
[2023-12-10] MEDS ORDERED: MECLIZINE 25 MG TAB PO PRN (16:36)
[2023-12-10] MEDS: ONDANSETRON 4 MG/2 ML VIAL IVP ONE (17:34)
--- NOTE | 2023-12-10 17:51 | P.CONS ---
History of Present Illness - Reason for Consult Consult date: 12/10/23 Medical Management Requesting physician: Garrett Lazaro - History of Present Illness History of Presenting Illness: Patient is a very pleasant 68-year-old female with a past medical history of hypertension, hyperlipidemia, atrial fibrillation and flutter status postcardiac ablation on anticoagulation with Eliquis, thyroidism, GERD, and osteoarthrosis. Patient is currently admitted under orthopedic surgery team status post elective left total knee arthroplasty. Surgical procedure was completed by Dr. Lazaro. We were consulted for medical management throughout patient's hospitalization. Patient was seen and evaluated in room 464. She reports postoperative nausea and upset stomach. She denies having any headache, lightheadedness, dizziness, chest pain, palpitations, shortness of breath or any episodes of vomiting. Patient is tolerating a clear liquid diet but is now requiring medication for nausea. She reports she has not yet urinated since completion of surgical procedure. Review of systems: Pertinent positives and negatives as discussed in HPI, a complete review of systems was performed and all other systems are negative. Physical exam: Vital signs reviewed and stable. General: Nontoxic, no distress and appears stated age. Derm: Skin warm and dry, normal coloration for ethnicity. Head: Atraumatic, normocephalic and symmetric. Eyes: EOMs intact, no lid lag, and anicteric sclera Mouth: no lip lesions, mucus membranes moist Cardiovascular: regular rate and rhythm with normal S1S2, no murmur, positive posterior tibial pulses bilaterally, and cap refill < 2 seconds. Lungs: Respirations even, regular, and unlabored on room air. Lungs CTA bilaterally, no rhonchi, no rales, no wheezing, and no accessory muscle usage. Abdominal: soft, nontender to palpation, no guarding, no appreciable organomegaly Ext: ROM intact. No gross muscle atrophy, no edema, no contractures Neuro: Speech clear, face symmetrical and CN II-XII grossly intact with no noted focal neuro deficits Psych: Alert and oriented to person, place, time, and situation. Appropriate and pleasant affect. Assessment and Plan of Care: Status post left total knee arthroplasty Management per primary admitting orthopedic surgery team including DVT prophylaxis, pain management, wound/dressing management, weightbearing, and PT/OT. Post-Operative nausea Continue Zofran 4 mg IVP every 8 hours as needed for nausea and order placed for Compazine 10 mg IVP to be administered as needed for persistent nausea uncontrolled by Zofran. Atrial fibrillation/flutter, paroxysmal. Currently maintaining sinus mechanism. Hypertension Hyperlipidemia Recommend resumption of Eliquis once cleared by primary admitting orthopedic surgery team to resume. Continue daily medication regimen with atorvastatin 20 mg nightly, carvedilol 12.5 mg twice daily, and hydrochlorothiazide 25 mg daily. GERD Continue daily medication regimen with Pepcid 20 mg twice daily. Hypothyroidism Continue Levothyroxine 137 mcg daily. Data reviewed: Vital signs reviewed. Blood pressure 118/71, heart rate 75, respiratory rate 16, 97.8 F, and SpO2 of 97% on room air. Reviewed preoperative labs completed 11/20/2023. Order placed for morning CBC and BMP. Will follow-up on results and place additional orders if indicated based upon these findings. Thank you for allowing us to participate in the care of this pleasant patient. Do not hesitate to contact us with questions. Someone can be reached from the [facility] group all hours of the day at [phone] or via [employer]. Patient was seen independently by Nurse Practitioner. This document was prepared using [employer] dictation software. Please allow for errors in stain wiper while rare they do occur. Momo Benitez NP rendered care for this patient independently, reviewed the findings and plan as documented in the note above. I did not physically speak with or examine the patient on this date. Past Medical History Past Medical History: Atrial Fibrillation, Atrial Flutter, CVA/TIA, Eye Disorder, Hyperlipidemia, Hypertension, Myocardial Infarction (OK), Osteoarthritis (OA), Thyroid Disorder Additional Past Medical History / Comment(s): macular degeration, very dry skin Last Myocardial Infarction Date:: 2012 History of Any Multi-Drug Resistant Organisms: None Reported Past Surgical History: Appendectomy, Cardiac Ablation, Orthopedic Surgery, Tubal Ligation Additional Past Surgical History / Comment(s): Cataract, orthopedic procedures,colonoscopy loop recorder placed and removed, Past Anesthesia/Blood Transfusion Reactions: No Reported Reaction Smoking Status: Former smoker - Past Family History Father Family Medical History: Cancer Additional Family Medical History / Comment(s): leukemia Medications and Allergies Home Medications Medication Instructions Recorded Confirmed Type Acetaminophen [Tylenol Arthritis] 650 mg PO DAILY PRN 01/24/23 12/10/23 History Aloe Vera/Meka Root 200 mg PO DAILY 01/24/23 12/10/23 History Apixaban [Eliquis] 5 mg PO BID 01/24/23 12/10/23 History Atorvastatin [Lipitor] 20 mg PO HS 01/24/23 12/10/23 History Cholecalciferol [Vitamin D3 (125 125 mcg PO DAILY 01/24/23 12/10/23 History Mcg = 5000 Iu)] Curcumin-Phosphatidylcholine 500 mg PO BID 01/24/23 12/10/23 History [Curcumin Phytosome] Famotidine [Pepcid] 20 mg PO BID 01/24/23 12/10/23 History Levothyroxine Sodium [Synthroid] 137 mcg PO DAILY 01/24/23 12/10/23 History Magnesium 200 mg PO DAILY 01/24/23 12/10/23 History Meclizine [Antivert] 25 mg PO TID PRN 01/24/23 12/10/23 History [place]-3/Dha/Epa/Fish Oil [Fish Oil 1 cap PO BID 01/24/23 12/10/23 History 1,000 mg Softgel] Vit C/E/Zn/Coppr/Lutein/Zeaxan 1 cap PO BID 01/24/23 12/10/23 History [Preservision Areds 2 Softgel] carvediloL [Coreg] 12.5 mg PO BID 01/24/23 12/10/23 History hydroCHLOROthiazide [Hydrodiuril] 25 mg PO DAILY 01/24/23 12/10/23 History Dynamic Brain 2 tab PO DAILY 12/04/23 12/10/23 History Keto Supp 800 mg PO BID 12/04/23 12/10/23 History Allergies Allergy/AdvReac Type Severity Reaction Status Date / Time azithromycin Allergy Rash/Hives Verified 12/10/23 08:57 [From Zithromax Z-Lorenzo] clindamycin Allergy Rash/Hives Verified 12/10/23 08:57 omeprazole Allergy Headache/GI Verified 12/10/23 08:57 Upset Penicillins Allergy Rash/Hives Verified 12/10/23 08:57 codeine AdvReac Nausea Verified 12/10/23 08:57 [From Tylenol-Codeine] Physical Exam Osteopathic Statement: *. No significant issues noted on an osteopathic structural exam other than those noted in the History and Physical/Consult. Vitals: Vital Signs Temp Pulse Pulse Resp BP BP Pulse Ox 12/10/23 15:00 75 16 118/71 97 12/10/23 14:30 71 16 122/68 97 12/10/23 14:00 75 17 122/68 97 12/10/23 13:45 74 16 115/64 97 12/10/23 13:35 74 16 113/64 95 12/10/23 13:19 77 16 127/69 98 12/10/23 12:45 79 16 122/68 97 12/10/23 12:30 76 15 132/74 98 12/10/23 12:15 82 14 125/73 98 12/10/23 12:08 97.8 F 96 15 143/74 97 12/10/23 09:33 80 16 141/64 98 12/10/23 08:56 98 F 75 16 130/104 98 Intake and Output 12/10/23 12/10/23 12/10/23 06:59 14:59 22:59 Intake Total 1151 Output Total 100 Balance 1051 Intake: IV 1151 Output: Estimated Blood Loss 100 Other: Weight 83 kg
[2023-12-10] MEDS: carvediloL 12.5 MG TAB PO SCH (17:54)
[2023-12-10] MEDS: PROCHLORPERAZINE INJ 10 MG/2 ML VIAL IVP PRN (19:52)
[2023-12-10] MEDS ORDERED: NON FORMULARY DRUG (Omega-3/Dha/Epa/Fish Oil [Fish Oil 1,000 Mg Softgel] 1 EACH Capsule) PO SCH (21:00)
[2023-12-10] MEDS: SENNOSIDES-DOCUSATE SODIUM 1 EACH TAB PO SCH (21:03)
[2023-12-10] MEDS: FAMOTIDINE 20 MG TAB PO SCH (21:03)
[2023-12-10] MEDS: ATORVASTATIN 20 MG TAB PO SCH (21:03)
[2023-12-11] MEDS: LEVOTHYROXINE 137 MCG TAB PO SCH (06:21)
--- NOTE | 2023-12-11 07:47 | P.PN ---
Progress Note - Text Progress Note Date: 12/11/23 Postoperative day # 1 status post total knee arthroplasty, on adductor canal perineural catheter placed for postoperative analgesia. Ropivacaine 0.2% 8 mL per hour through ON-Q pump continuous infusion. Pain is well controlled. On visual analog scale 3/10 Patient is taking PRN oral pain medications. Catheter site: Looks Ok. There is no erythema or tenderness. Continue with the current pain management plan and will follow.
[2023-12-11 08:36] VITALS: BP 116/62; PULSE 91; RESP 17; TEMP 98
[2023-12-11] MEDS: VIT A,C & E-LUTEIN-MINERALS 1 EACH TAB PO SCH (09:22)
[2023-12-11] MEDS: CHOLECALCIFEROL 125 MCG (5000 IU) TABLET PO SCH (09:22)
[2023-12-11] MEDS: MAGNESIUM OXIDE 400 MG TAB PO SCH (09:22)
[2023-12-11] MEDS: hydroCHLOROthiazide 25 MG TAB PO SCH (09:22)
[2023-12-11 10:24] LABS: Basophils # (A) 0.01 X 10*3/uL (0.00-0.10); Basophils % (A) 0.1 %; Eosinophils # (A) 0 X 10*3/uL (0.04-0.35); Eosinophils % (A) 0 %; HCT 32.2 % (37.2-46.3); HGB 10.6 g/dL (12.0-15.0); Lymphocytes # (A) 0.67 X 10*3/uL (0.90-5.00); Lymphocytes % (A) 5.6 %; MCH 32.2 pg (27.0-32.0); MCHC 32.9 g/dL (32.0-37.0); MCV 97.9 FL (80.0-97.0); Monocytes # (A) 0.93 X 10*3/uL (0.20-1.00); Monocytes % (A) 7.8 %; NRBC Per 100 WBC 0 X 10*3/uL (0.00-0.01); Platelet Count 264 X 10*3/uL (140-440); RBC 3.29 X 10*6/uL (4.10-5.20); RDW 12.8 % (11.5-14.5); WBC 11.97 X 10*3/uL (4.50-10.00)
[2023-12-11 10:40] LABS: BUN/Creat Ratio 20.67 Ratio (12.00-20.00); Blood Urea Nitrogen 12.4 mg/dL (9.0-27.0); Calcium 8.7 mg/dL (8.7-10.3); Carbon Dioxide 25.2 mmol/L (21.6-31.8); Chloride 103 mmol/L (96-109); Glucose 105 mg/dL (70-110); Magnesium 1.9 mg/dL (1.5-2.4); Potassium 3.8 mmol/L (3.5-5.5); Sodium 139 mmol/L (135-145)
[2023-12-11] MEDS: APIXABAN 5 MG TAB PO SCH (11:24)
[2023-12-11] MEDS: MULTIVITAMINS, THERA 1 EACH TAB PO SCH (11:26)
--- NOTE | 2023-12-11 14:53 | P.DS ---
Providers Expected date of discharge: 12/11/23 Attending physician: Garrett Lazaro Consults: 12/10/23 09:18 Consult Physician Routine Consulting Provider: Beronica Marques Consult Reason/Comments: post op medical management Do you want consulting provider notified?: Yes Primary care physician: Bird Mike - Discharge Diagnosis(es) (1) Osteoarthritis of left knee Patient was admitted to the OR on 12/10/23 to undergo a left total knee arthroplasty. She had failed conservative measures as an outpatient and desired to proceed with elective surgery after given informed consent. She underwent the above procedure which she tolerated well without complication. Postoperative hospital course has remained without complication. On day of discharge she is afebrile, vital signs stable, labs within acceptable ranges, tolerating by mouth meds and diet, voiding without difficulty, positive flatus, denies abdominal pain or calf pain, pain is controlled on oral pain medication and has no new c omplaints. Wound is benign, neurovascular status is intact, calf is soft and nontender, abdomen soft and nontender. Review of systems is negative for numbness, tingling, fever, chills, chest pain, shortness of breath, nausea, vomiting, dizziness, headaches, slurred speech or other. Current Visit: Yes Status: Acute Priority: Medium Procedures: Left TKA Patient Condition at Discharge: Good Plan - Discharge Summary Discharge Rx Participant: No New Discharge Prescriptions: New Ondansetron [Zofran] 4 mg PO Q8HR PRN #21 tab PRN Reason: Nausea Docusate [Colace] 100 mg PO BID #60 capsule HYDROcodone/APAP 7.5-325MG [Adrian 7.5-325] 1 - 2 tab PO Q6HR PRN #32 tab PRN Reason: Pain No Action Magnesium 200 mg PO DAILY [place]-3/Dha/Epa/Fish Oil [Fish Oil 1,000 mg Softgel] 1 cap PO BID Atorvastatin [Lipitor] 20 mg PO HS carvediloL [Coreg] 12.5 mg PO BID Famotidine [Pepcid] 20 mg PO BID Apixaban [Eliquis] 5 mg PO BID Dynamic Brain 2 tab PO DAILY Vit C/E/Zn/Coppr/Lutein/Zeaxan [Preservision Areds 2 Softgel] 1 cap PO BID Meclizine [Antivert] 25 mg PO TID PRN PRN Reason: Vertigo Acetaminophen [Tylenol Arthritis] 650 mg PO DAILY PRN PRN Reason: Pain Curcumin-Phosphatidylcholine [Curcumin Phytosome] 500 mg PO BID Cholecalciferol [Vitamin D3 (125 Mcg = 5000 Iu)] 125 mcg PO DAILY hydroCHLOROthiazide [Hydrodiuril] 25 mg PO DAILY Levothyroxine Sodium [Synthroid] 137 mcg PO DAILY Aloe Vera/Meka Root 200 mg PO DAILY Keto Supp 800 mg PO BID Discharge Medication List Acetaminophen [Tylenol Arthritis] 650 mg PO DAILY PRN 01/24/23 [History] Aloe Vera/Meka Root 200 mg PO DAILY 01/24/23 [History] Apixaban [Eliquis] 5 mg PO BID 01/24/23 [History] Atorvastatin [Lipitor] 20 mg PO HS 01/24/23 [History] Cholecalciferol [Vitamin D3 (125 Mcg = 5000 Iu)] 125 mcg PO DAILY 01/24/23 [History] Curcumin-Phosphatidylcholine [Curcumin Phytosome] 500 mg PO BID 01/24/23 [History] Famotidine [Pepcid] 20 mg PO BID 01/24/23 [History] Levothyroxine Sodium [Synthroid] 137 mcg PO DAILY 01/24/23 [History] Magnesium 200 mg PO DAILY 01/24/23 [History] Meclizine [Antivert] 25 mg PO TID PRN 01/24/23 [History] [place]-3/Dha/Epa/Fish Oil [Fish Oil 1,000 mg Softgel] 1 cap PO BID 01/24/23 [History] Vit C/E/Zn/Coppr/Lutein/Zeaxan [Preservision Areds 2 Softgel] 1 cap PO BID 01/24/23 [History] carvediloL [Coreg] 12.5 mg PO BID 01/24/23 [History] hydroCHLOROthiazide [Hydrodiuril] 25 mg PO DAILY 01/24/23 [History] Dynamic Brain 2 tab PO DAILY 12/04/23 [History] Keto Supp 800 mg PO BID 12/04/23 [History] Docusate [Colace] 100 mg PO BID #60 capsule 12/10/23 [Rx] Ondansetron [Zofran] 4 mg PO Q8HR PRN #21 tab 12/10/23 [Rx] HYDROcodone/APAP 7.5-325MG [Adrian 7.5-325] 1 - 2 tab PO Q6HR PRN #32 tab 12/11/23 [Rx] Follow up Appointment(s)/Referral(s): Klever Scott MD [STAFF PHYSICIAN] - 12/18/23 7:30 am [facility], [REFERRING] - 1-2 Days ([facility] will call you to schedule your in home physical therapy visits.) Garrett Lazaro MD [STAFF PHYSICIAN] - 12/18/23 9:30 am Activity/Diet/Wound Care/Special Instructions: Weight bear as tolerated May shower after 3 days if no bleeding Keep wound clean and dry Take meds as directed F/U with Dr. Lazaro in office Discharge Disposition: HOME WITH HOME HEALTH SERVICES
--- NOTE | 2023-12-11 16:02 | P.PN ---
Subjective Progress Note Date: 12/11/23 Hospital course: Patient is a very pleasant 68-year-old female with a past medical history of hypertension, hyperlipidemia, atrial fibrillation and flutter status postcardiac ablation on anticoagulation with Eliquis, thyroidism, GERD, and osteoarthrosis. Patient is currently admitted under orthopedic surgery team status post elective left total knee arthroplasty. Surgical procedure was completed by Dr. Lazaro. We were consulted for medical management throughout patient's hospitalization. Physical exam: Patient seen and fully evaluated at bedside this morning. She continues to report urinary retention and requiring multiple straight catheterizations. Walker catheter to be placed. Patient denies any other complaints and reports controlled postoperative pain. Vital signs reviewed and stable. General: Nontoxic, no distress and appears stated age. Derm: Skin warm and dry, normal coloration for ethnicity. Head: Atraumatic, normocephalic and symmetric. Eyes: EOMs intact, no lid lag, and anicteric sclera Mouth: no lip lesions, mucus membranes moist Cardiovascular: regular rate and rhythm with normal S1S2, no murmur, positive posterior tibial pulses bilaterally, and cap refill < 2 seconds. Lungs: Respirations even, regular, and unlabored on room air. Lungs CTA bilaterally, no rhonchi, no rales, no wheezing, and no accessory muscle usage. Abdominal: soft, nontender to palpation, no guarding, no appreciable organomegaly Ext: ROM intact. No gross muscle atrophy, no edema, no contractures Neuro: Speech clear, face symmetrical and CN II-XII grossly intact with no noted focal neuro deficits Psych: Alert and oriented to person, place, time, and situation. Appropriate and pleasant affect. Assessment and Plan of Care: Postoperative urinary retention Order was placed for bladder management and to straight catheterize patient as needed. Patient continued to have urinary retention after 24 hours. Patient requiring multiple straight caths and a Walker catheter was placed. Patient discharged per primary admitting orthopedic surgery team. Patient to be discharged home with Walker catheter in place and to follow-up with urologist, Dr. Scott in one week for removal of catheter and for repeating voiding challenge. Status post left total knee arthroplasty Management per primary admitting orthopedic surgery team including DVT prophylaxis, pain management, wound/dressing management, weightbearing, and PT/OT. Acute postoperative blood loss anemia Stable and expected finding with hemoglobin of 10.6 and preoperative hemoglobin of 13.6. No need for transfusion, no signs of active bleeding, no need for further intervention. Post-Operative nausea, resolved Continue Zofran 4 mg IVP every 8 hours as needed for nausea and order placed for Compazine 10 mg IVP to be administered as needed for persistent nausea uncontrolled by Zofran. Atrial fibrillation/flutter, paroxysmal. Currently maintaining sinus mechanism. Hypertension Hyperlipidemia Recommend resumption of Eliquis once cleared by primary admitting orthopedic surgery team to resume. Continue daily medication regimen with atorvastatin 20 mg nightly, carvedilol 12.5 mg twice daily, and hydrochlorothiazide 25 mg daily. GERD Continue daily medication regimen with Pepcid 20 mg twice daily. Hypothyroidism Continue Levothyroxine 137 mcg daily. Data reviewed: Vital signs reviewed. Blood pressure 116/62, heart rate 91, respiratory rate 17, temp 98.0 F, and SpO2 of 96% on room air. Postoperative labs reviewed. CBC showing leukocytosis with WBC count of 11.97 and acute blood loss anemia with hemoglobin of 10.6 preoperative hemoglobin of 13.6. BMP unremarkable. Blood glucose 105. Magnesium normal findings at 1.9. Patient is medically optimized for discharge, she is being discharged home with Walker catheter in place secondary to persistent postoperative urinary retention. Patient will need to follow-up outpatient with urologist. Patient cleared for discharge once cleared by primary admitting orthopedic surgery team. Thank you for allowing us to participate in the care of this pleasant patient. Do not hesitate to contact us with questions. Someone can be reached from the [facility] group all hours of the day at [phone] or via [employer]. Patient was seen independently by Nurse Practitioner. This document was prepared using [employer] dictation software. Please allow for errors in banquet steward while rare they do occur. Objective - Vital Signs Vital signs: Vital Signs Temp 98.0 F 12/11/23 08:02 Pulse 91 12/11/23 08:02 Resp 17 12/11/23 08:02 BP 116/62 12/11/23 08:02 Pulse Ox 90 L 12/11/23 08:02 FiO2 Intake & Output 12/10/23 12/11/23 12/11/23 18:59 06:59 18:59 Intake Total 2203 Output Total 100 2900 Balance 2103 -2900 Weight 83 kg Intake: IV 1151 Intake, IV Titration 550 Amount Lactated Ringers 1,000 ml 500 @ 100 mls/hr IV .Q10H [facility] Rx#:[id number] ceFAZolin 2 gm In Sodium 50 Chloride 0.9% 50 ml @ 100 mls/hr IVPB Q8H [facility] Rx#: [id number] Oral 502 Output: Urine 2900 Straight 1450 Estimated Blood Loss 100 Other: # Voids 0 - Labs CBC & Chem 7: 12/11/23 06:48 12/11/23 06:48
== END 2023-12-11 15:01 | disposition home health service (06) ==
LOC: OR 08:16 → 4SSUR 11:50 → OR 12-11 15:01
PROVIDERS: ATTEND Orthopaedic Surgery Sports Medicine
DX: M17.12 Unilateral primary osteoarthritis, left knee (principal); G89.18 Other acute postprocedural pain; I10 Essential (primary) hypertension; E78.5 Hyperlipidemia, unspecified; M21.061 Valgus deformity, not elsewhere classified, right knee; E03.9 Hypothyroidism, unspecified; Z79.01 Long term (current) use of anticoagulants; Z79.899 Other long term (current) drug therapy; Z79.890 Hormone replacement therapy; Z88.0 Allergy status to penicillin; Z88.5 Allergy status to narcotic agent; Z90.49 Acquired absence of other specified parts of digestive tract; Z90.89 Acquired absence of other organs; Z87.891 Personal history of nicotine dependence
CPT/HCPCS: 27447; 97162; 64999; 64448; 80048; 83735; 85025; 73560; C1776; C1713; C1751; J2250; J0780; J1100; J0690 ×3; J2405; J1170

== ENCOUNTER → 2024-04-26 | Outpatient (CLI) | payer MEDICARE ==
--- NOTE | 2024-04-26 14:55 | BD ---
EXAMINATION TYPE: Axial Bone Density DATE OF EXAM: 04/26/2024 CLINICAL HISTORY: 68 years old Female. ICD-10 CODE: M89.9 DISORDER OF BONE, Height: 66.75 Weight: 178.3 FRAX RISK QUESTIONS: Alcohol (3 or more units per day): no Family History (Parent hip fracture): no Glucocorticoids (More than 3mos): no (Ex: prednisone, prednisolone, methylprednisolone, dexamethasone, and hydrocortisone). History of Fracture in Adulthood: no Secondary Osteoporosis: 1. Type 1 Diabetes: no 2. Hyperthyroidism: no 3. Menopause before 45: yes 4. Malnutrition: no 5. Chronic liver disease: no Rheumatoid Arthritis: no Current Tobacco Use: no RISK FACTORS HISTORY OF: Hip Fracture (Right/Left): no Spine Fracture: no History of Wrist Fracture: no Surgery to Spine/Hip(right/left)/Wrist (right/left): no MEDICATIONS: Thyroid Medications: Synthyroid How Long: past 20 years Osteoporosis Medications: no EXAM MEASUREMENTS: Bone mineral densitometry was performed using the Triptrotting System. Bone mineral density as measured about the Lumbar spine is: ----- L1-L4(G/cm2): 1.563 T Score Values are as follows: ----- L1: -0.3 ----- L2: 2.5 ----- L3: 4.5 ----- L4: 5.9 ----- L1-L4: 3.2 Z Score Values are as follows: ----- L1: 0.8 ----- L2: 3.6 ----- L3: 5.6 ----- L4: 7.0 ----- L1-L4: 4.3 Bone mineral density has: increased 9.5 % since study of: 12/20/2021 Bone mineral density about the R hip (g/cm2): 0.943 Bone mineral density about the L hip (g/cm2): 0.878 T Score values are as follows: -----R Neck: -0.3 -----L Neck: -1.3 -----R Total: -0.5 -----L Total: -1.0 Z Score values are as follows: -----R Neck: 1.0 -----L Neck: 0.0 -----R Total: 0.4 -----L Total: -0.1 Bone mineral density has: decreased -3.2 % since study of: 12/20/2021 FRAX%s: The graph provided illustrates a 8.9% chance for a major osteoporotic fx and a 0.9% chance fo r the hips probability for fx in 10 years time. IMPRESSION: Normal (Values between +1 and -1 indicate normal bone mass). Consider repeating this study in 5 year s or sooner if there is some new clinical indication. NOTE: T-SCORE=SD OF THE YOUNG ADULT MEAN. [facility], , 04/26/2024 2:53 PM
--- NOTE | 2024-04-27 12:20 | MM ---
Reason for Exam: Screening (asymptomatic). Last mammogram was performed 1 year(s) and 2 month(s) ago. Patient History: Menarche at age 14. First Full-Term at age 27. Postmenopausal. Estrogen for 1 year, 6 months, from age 45 until age 47. Hormonal Contraceptives for 2 years from age 19 until age 23. Risk Values: Charlotte 5 year model risk: 1.9%. NCI Lifetime model risk: 6.4%. Prior Study Comparison: 01/31/2021 Bilateral Screening Mammogram, [facility]. 02/03/2022 Bilateral MG screening mammo w CAD, [facility]. 02/27/2023 Bilateral MG screening mammo w CAD, [facility]. Tissue Density: There are scattered areas of fibroglandular density. Findings: Analyzed By CAD. There is no suspicious group of microcalcifications or new suspicious mass in either breast. Overall Assessment: Negative, BI-RAD 1 Management: Screening Mammogram of both breasts in 1 year. . Patient should continue monthly self-breast exams. A clinical breast exam by your physician is recommended on an annual basis. This exam should not preclude additional follow-up of suspicious palpable abnormalities. Note on Charlotte scores and lifetime risk: 1. A Charlotte score greater than 3% is considered moderate risk. If this is the case, consider specialist referral to assess eligibility for a risk reducing agent. 2. If overall lifetime risk for the development of breast cancer is 20% or higher, the patient may qualify for future screening with alternating mammogram and breast MRI. [facility], , 04/27/2024 12:17 PM. Electronically signed and approved by: Rodrick Alberto M.D. Radiologis
== END | disposition home or self-care (01) ==
LOC: RADBDWWP 12:57
PROVIDERS: ATTEND Family Medicine
DX: M89.9 Disorder of bone, unspecified
CPT/HCPCS: 77063; 77067; 77080

== ENCOUNTER 2024-07-15 08:56 | Day surgery (SDC) | payer MEDICARE ==
[2024-07-14 10:04] VITALS: BMI 28.0
[2024-07-15 09:15] VITALS: TEMP 97.3
[2024-07-15] MEDS: LACTATED RINGERS 1,000 ML IV SCH (09:23)
[2024-07-15] MEDS: IV FLUID CONTINUATION 1,000 ML IV ONE (09:23)
[2024-07-15] MEDS ORDERED: PROPOFOL 10 MG/ML 20 ML VIAL IV ONE (09:30)
--- NOTE | 2024-07-15 09:44 | P.PCN ---
Date of Procedure: 07/15/24 Procedure(s) Performed: BRIEF HISTORY: Patient is a 68-year-old pleasant white female scheduled for an elective colonoscopy as a part of screening for colon cancer. PROCEDURE PERFORMED: Colonoscopy with snare polypectomy. PREOPERATIVE DIAGNOSIS: Screening for colon cancer. IV sedation per Anesthesia. PROCEDURE: After informed consent was obtained, the patient, was brought into the endoscopy unit. IV sedation was administered by Anesthesia under continuous monitoring. Digital rectal examination was normal. Initially the Olympus CF-160 flexible video colonoscope was then inserted in the rectum, gradually advanced into the cecum without any difficulty. Careful examination was performed as the scope was gradually being withdrawn. Ileocecal valve and the appendiceal orifice were visualized and appeared normal. Prep was excellent. Mucosa of the cecum had a 1 cm flat polyp that was removed by cold snare polypectomy. Rest of the, ascending colon, transverse colon, descending colon, sigmoid colon, and rectum appeared normal. Sigmoid diverticulosis. Retroflexion was performed in the rectum and no lesions were seen. The patient tolerated the procedure well. IMPRESSION: 1 cm flat cecal polyp status post cold snare polypectomy Scattered sigmoid diverticulosis Rest of the colon appeared normal RECOMMENDATIONS: Findings of this examination were discussed with the patient as well as her family. She was advised to follow-up with the biopsy results. If the biopsy reveals adenoma she can have repeat colonoscopy in 3 years.
[2024-07-15 10:02] VITALS: BP 116/52; PULSE 66; RESP 16
== END 2024-07-15 10:17 | disposition home or self-care (01) ==
LOC: ORWHC2ENDO 08:56
PROVIDERS: ATTEND Internal Medicine Gastroenterology
DX: Z12.11 Encounter for screening for malignant neoplasm of colon (principal); D12.0 Benign neoplasm of cecum; K57.30 Diverticulosis of large intestine without perforation or abscess without bleeding; I10 Essential (primary) hypertension; E78.5 Hyperlipidemia, unspecified; I48.91 Unspecified atrial fibrillation; G47.33 Obstructive sleep apnea (adult) (pediatric); E07.9 Disorder of thyroid, unspecified; I67.9 Cerebrovascular disease, unspecified; K21.9 Gastro-esophageal reflux disease without esophagitis; Z90.89 Acquired absence of other organs; Z89.522 Acquired absence of left knee; Z88.0 Allergy status to penicillin; Z88.5 Allergy status to narcotic agent; Z88.1 Allergy status to other antibiotic agents; Z88.8 Allergy status to other drugs, medicaments and biological substances; Z79.02 Long term (current) use of antithrombotics/antiplatelets; Z79.890 Hormone replacement therapy; Z79.899 Other long term (current) drug therapy
CPT/HCPCS: 88305; 45385; J2704

== ENCOUNTER → 2024-11-10 | Outpatient (CLI) | payer MEDICARE ==
[2024-11-10 10:19] LABS: HCT 41.7 % (37.2-46.3); HGB 13.1 g/dL (12.0-15.0); MCH 31.3 pg (27.0-32.0); MCHC 31.4 g/dL (32.0-37.0); MCV 99.8 FL (80.0-97.0); Mean Platelet Volume 9.3 FL (9.5-12.2); NRBC Per 100 WBC 0 X 10*3/uL (0.00-0.01); Platelet Count 354 X 10*3/uL (140-440); RBC 4.18 X 10*6/uL (4.10-5.20); RDW 13.1 % (11.5-14.5); WBC 5.45 X 10*3/uL (4.50-10.00)
[2024-11-10 10:45] LABS: ALT 26 U/L (8-44); AST 25 U/L (13-35); Albumin 4.7 g/dL (3.8-4.9); Albumin/Globulin Ratio 1.81 Ratio (1.60-3.17); Alkaline Phosphatase 79 U/L (41-126); BUN/Creat Ratio 9.75 Ratio (12.00-20.00); Blood Urea Nitrogen 7.8 mg/dL (9.0-27.0); Carbon Dioxide 29.8 mmol/L (21.6-31.8); Chloride 100 mmol/L (96-109); Chol/HDL Ratio 3.61 Ratio; Globulin 2.6 g/dL (1.6-3.3); Glucose 86 mg/dL (70-110); LDL Cholesterol,Calculated 104.1 mg/dL (0.0-131.0); Sodium 139 mmol/L (135-145); T4, Free (Free Thyroxine) 1.52 ng/dL (0.80-1.80); Total Bilirubin 0.3 mg/dL (0.3-1.2); Total Protein 7.3 g/dL (6.2-8.2)
== END | disposition home or self-care (01) ==
LOC: LABWHC1 07:07
PROVIDERS: ATTEND Family Medicine
DX: Z00.01 Encounter for general adult medical examination with abnormal findings (principal); E03.9 Hypothyroidism, unspecified
CPT/HCPCS: 36415; 80053; 80061; 84439; 84443; 84481; 85027